=== PATIENT | male | born 1940 | race African-American/Black ===

== ENCOUNTER 2017-02-02 11:42 | Inpatient (IN) | payer OTHER ==
[2017-02-02 11:51] VITALS: BMI 34.4
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
[2017-02-02 13:29] LABS: MCH 38.8 pg (25.7-33.7); MCHC 32.7 g/dl (32.0-35.9); MEAN CELL VOLUME 118.9 fl (80-96); MEAN PLT VOLUME 9.6 fl (7.5-11.1); PLATELET COUNT 329 K/MM3 (134-434); RDW 13.9 % (11.9-15.9); WHITE BLOOD COUNT 11.5 K/mm3 (4.0-10.0)
[2017-02-02 13:46] LABS: INR 3.9 (0.82-1.09); PROTHROMBIN TIME (PATIENT) 44.1 SEC (9.98-11.88)
[2017-02-02 13:48] LABS: ACTIVATED PTT 53.4 SECONDS (26.9-34.4)
[2017-02-02 13:49] LABS: ALBUMIN 3.6 g/dl (3.4-5.0); ANION GAP 10 (8-16); CALCIUM 9.2 mg/dL (8.5-10.1); CO2 27 mmol/L (21-32); CREATININE 2.9 mg/dL (0.7-1.3); GLUCOSE,RANDOM 89 mg/dL (74-106); SGPT/ALT 32 U/L (12-78)
[2017-02-02 13:53] LABS: ALK PHOS 79 U/L (45-117); BILIRUBIN,TOTAL 1.1 mg/dL (0.2-1.0); TOT PROT 6.9 g/dl (6.4-8.2); TROPONIN I 0.12 ng/ml (0.00-0.05)
[2017-02-02 14:11] LABS: MAGNESIUM 2.1 mg/dL (1.8-2.4); SGOT/AST 72 U/L (15-37); TOTAL CELLS COUNTED 100
[2017-02-02 14:12] LABS: PLATELET ESTIMATE ADEQUATE
[2017-02-02 14:14] LABS: ANISOCYTOSIS 2+; MACROCYTOSIS 3+
[2017-02-02] MEDS ORDERED: ASPIRIN 325 MG TABLET PO ONE (14:26)
[2017-02-02] MEDS ORDERED: ASPIRIN 325 MG TABLET ONE (14:33)
[2017-02-02 15:07] LABS: URINE APPEARANCE SLCLOUDY; URINE BILIRUBIN NEGATIVE (NEGATIVE); URINE BLOOD 2+ (NEGATIVE); URINE COLOR YELLOW; URINE GLUCOSE (UA) NEGATIVE (NEGATIVE); URINE KETONE NEGATIVE (NEGATIVE); URINE NITRITE NEGATIVE (NEGATIVE)
[2017-02-02 15:11] LABS: URINE PROTEIN 1+ (NEGATIVE)
[2017-02-02 15:12] LABS: URINE HYALINE CAST 1 /lpf; URINE RBC <1 /hpf (0-3); URINE WBC 1 /hpf (3-5)
--- NOTE | 2017-02-02 16:21 | HP ---
Admitting History and Physical - Admission Chief Complaint: lethargy/baca History of Present Illness: The patient is a 76 year old male, with a significant past medical history of CHF, afib, HTN, HLD, CAD, multiple DVT, renal carcinoma s/p nephrectomy who was sent for admission with c/os of weakness and fatigue. The patient notes he has been losing weight and has c/os of weakness.. He notes having a persistent non- productive cough for about 2-3 days. He denies any recent fevers, chills, headache or dizziness. He denies any recent nausea, vomit, diarrhea or constipation. He denies any recent chest pain. He denies any recent dysuria, frequency, urgency or hematuria. 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 Cardiovascular: Yes: AFIB, CAD, Deep Vein Thrombosis, HTN, Hyperlipdemia, MD Renal/: Yes: Renal Inusuff (Stage 3), Cancer (right kidney) - Past Surgical History Past Surgical History: Yes: Nephrectomy (right kidney) - Smoking History Smoking history: Current every day smoker Have you smoked in the past 12 months: No Aproximately how many cigarettes per day: 3 If you are a former smoker, when did you quit?: 20 years ago - Alcohol/Substance Use Hx Alcohol Use: No History of Substance Use: reports: None - Social History Usual Living Arrangement: Yes: Alone ADL: Independent History of Recent Travel: No Home Medications - Allergies Allergies/Adverse Reactions: Allergies Allergy/AdvReac Type Severity Reaction Status Date / Time No Known Allergies Allergy Verified 02/02/17 11:50 - Home Medications Home Medications: Ambulatory Orders Allopurinol [Zyloprim -] 200 mg PO DAILY tablet 08/05/15 Amiodarone HCl [Cordarone -] 200 mg PO DAILY tablet 08/05/15 Amlodipine Besylate [Norvasc -] 5 mg PO DAILY #30 tablet 08/05/15 Cholecalciferol (Vitamin D3) [Vitamin D3 -] 2,000 unit PO DAILY tab 08/05/15 Hydroxyurea [Hydrea 500Mg Capsule -] 500 mg PO BID capsule 08/05/15 Metoprolol Succinate [Toprol XL -] 100 mg PO DAILY tab.sr.24h 08/05/15 Torsemide [Demadex -] 40 mg PO DAILY tablet 08/05/15 Valsartan [Diovan] 320 mg PO DAILY tablet 08/05/15 Warfarin Sodium [Coumadin] 6 mg PO DAILY #0 tablet 08/05/15 Allopurinol [Zyloprim -] 200 mg PO DAILY tablet 01/07/16 Amiodarone HCl [Cordarone -] 200 mg PO DAILY tablet 01/07/16 Amlodipine Besylate [Norvasc -] 5 mg PO DAILY tablet 01/07/16 Cholecalciferol (Vitamin D3) [Vitamin D3 -] 2,000 unit PO DAILY tab 01/07/16 Hydroxyurea [Hydrea 500Mg Capsule -] 500 mg PO BID capsule 01/07/16 Metoprolol Succinate [Toprol XL -] 100 mg PO DAILY tab.sr.24h 01/07/16 Simvastatin [Zocor -] 40 mg PO HS #30 tablet 01/07/16 Torsemide [Demadex -] 40 mg PO DAILY tablet 01/07/16 Valsartan [Diovan] 320 mg PO DAILY tablet 01/07/16 Warfarin Na [Coumadin -] 6 mg PO DAILY@1800 tablet 01/07/16 Family Disease History - Family Disease History Family History: Unremarkable Review of Systems - Review of Systems Constitutional: reports: Lethargy, Loss of Appetite. denies: Fever Eyes: denies: Blurred Vision HENT: denies: Difficult Swallowing, Throat Pain Neck: denies: Decreased ROM Cardiovascular: denies: Chest Pain Respiratory: reports: Exercise Intolerance, SOB on Exertion. denies: Hemoptysis , Wheezing Gastrointestinal: denies: Abdominal Pain Genitourinary: denies: Burning Breasts: reports: No Symptoms Reported Musculoskeletal: reports: No Symptoms Integumentary: reports: No Symptoms Neurological: reports: No Symptoms Physical Examination Vital Signs: Vital Signs Temperature 98.4 F 02/02/17 11:47 Pulse Rate 77 02/02/17 11:47 Respiratory Rate 19 02/02/17 11:47 Blood Pressure 137/67 02/02/17 11:47 O2 Sat by Pulse Oximetry (%) 96 02/02/17 11:47 Constitutional: Yes: No Distress Eyes: Yes: Conjunctiva Clear HENT: Yes: Atraumatic Neck: Yes: Supple Cardiovascular: Yes: S1, S2 Respiratory: Yes: Rhonchi (left base) Gastrointestinal: Yes: Normal Bowel Sounds, Soft ...Rectal Exam: Yes: Deferred Breast(s): Yes: WNL Musculoskeletal: Yes: WNL Edema: Yes Integumentary: Yes: WNL Neurological: Yes: Alert ...Motor Strength: WNL Psychiatric: Yes: WNL Labs: CBC, BMP 02/02/17 13:15 02/02/17 13:15 all reviewed Imaging - Results Chest X-ray: Report Reviewed, Image Reviewed Problem List - Problems (1) Renal cell carcinoma Code(s): C64.9 - MALIGNANT NEOPLASM OF UNSP KIDNEY, EXCEPT RENAL PELVIS (2) Acute on chronic combined systolic and diastolic congestive heart failure Code(s): I50.43 - ACUTE ON CHRONIC COMBINED SYSTOLIC AND DIASTOLIC HRT FAIL (3) Acute on chronic renal failure Code(s): N17.9 - ACUTE KIDNEY FAILURE, UNSPECIFIED; N18.9 - CHRONIC KIDNEY DISEASE, UNSPECIFIED (4) Acute pulmonary edema with congestive heart failure Code(s): I50.1 - LEFT VENTRICULAR FAILURE, UNSPECIFIED (5) Anemia Code(s): D64.9 - ANEMIA, UNSPECIFIED Qualifiers: Assessment/Plan PROGRESSIVE RENAL INSUFFICIENCY PAF/DILATED CARDIOMYOPATHY ELEVATED TROPONIN/ELEVATED BNP WEIGHT LOSS/FATIGUE LEFT BASE RHONCHI ANEMIA HOLD ARB ECHO/CYCLE TROPS/CARDIO EVAL MONITOR BUN/CR OBTAIN RENAL /BLADDER ULTRASOUND/RENAL EVAL CONTINUE ANTICOAGULATION CHEST CT R/O UNDERLYING LEFT BASE INFILTRATE PANCULTURE/MONITOR I/O R MELISSA CAMPOS
--- NOTE | 2017-02-02 16:21 | EKG ---
Test Reason : Blood Pressure : / mmHG Vent. Rate : 067 BPM Atrial Rate : 067 BPM P-R Int : 186 ms QRS Dur : 088 ms QT Int : 444 ms P-R-T Axes : 080 -32 035 degrees QTc Int : 469 ms NORMAL SINUS RHYTHM LEFT AXIS DEVIATION INFERIOR INFARCT , AGE UNDETERMINED ABNORMAL ECG WHEN COMPARED WITH ECG OF 03-JAN-2016 21:53, T WAVE INVERSION NO LONGER EVIDENT IN LATERAL LEADS QT HAS LENGTHENED Confirmed by INDER PAZ MD ([id number]) on 02/02/2017 4:21:27 PM Referred By: Confirmed By:INDER PAZ MD
[2017-02-02] MEDS ORDERED: ATORVASTATIN CA 20 MG TABLET (FP) PO SCH (16:30)
[2017-02-02] MEDS: WARFARIN NA 7.5 MG TABLET (FP) PO SCH ×2 (17:37→18:29)
[2017-02-02] MEDS: HYDROXYUREA 500 MG CAPSULE PO SCH (17:39)
[2017-02-02 19:11] LABS: URINE LEUK ESTERASE Negative (NEGATIVE)
[2017-02-02 19:44] LABS: TROPONIN I 0.08 ng/ml (0.00-0.05)
[2017-02-02] MEDS: ALBUTEROL SO4 0.083% IH SOL 2.5 MG/3 ML VIAL.NEB. NEB PRN (20:02)
[2017-02-02] MEDS ORDERED: LEVOFLOXACIN 500 MG IVPB 500 MG/100 ML BAG IVPB ONE (20:30)
[2017-02-02] MEDS: ATORVASTATIN CA 20 MG TABLET (FP) PO SCH (21:20)
[2017-02-02 21:46] LABS: TROPONIN I 0.08 ng/ml (0.00-0.05)
[2017-02-03] MEDS: HYDROXYUREA 500 MG CAPSULE PO SCH ×2 (04:03→17:29)
[2017-02-03 07:17] LABS: CPK 137 IU/L (39-308); TROPONIN I 0.08 ng/ml (0.00-0.05)
[2017-02-03] MEDS: METOPROLOL SUCCINATE 100 MG TAB.SR.24H (FP) PO SCH (09:01)
[2017-02-03] MEDS: ALLOPURINOL 100 MG TABLET (FP) PO SCH (09:01)
[2017-02-03] MEDS: amLODIPine BESYLATE 5 MG TABLET (FP) PO SCH (09:02)
--- NOTE | 2017-02-03 09:03 | CON.CARD ---
Consult Consult Specialty:: Cardiology Referred by:: Sridhar Rodriguez MD Reason for Consultation:: LV dysfunction - History of Present Illness Chief Complaint: Weakness, fatigue History of Present Illness: Patient is a 76 year old male with underlying history of ASHD post [place], angina pectoris, systolic and diastolic LV failure, PAF [id number] score of 4 on chronic anticoagulation therapy, HTN/HCVD, hypercholesterolemia, CKD, history of DVT, renal CA S/P nephrectomy and essential thrombocytosis. presents with c/o weakness , anorexia, inadvertent weight loss and fatigue. He notes having a persistent non-productive cough for about 2-3 days. He denies chest pain, dyspnea, near or true syncope, orthopnea, PND or LE edema, fevers or chills. Chest CT shows LLL PNA. 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 Cardio/Vascular: Yes: AFIB, CAD, Deep Vein Thrombosis, HTN, Hyperlipdemia, [place] Renal/: Yes: Renal Inusuff (Stage 3), Cancer (right kidney) - Past Surgical History Past Surgical History: Yes: Nephrectomy (right kidney) - Alcohol/Substance Use Hx Alcohol Use: No History of Substance Use: reports: None - Smoking History Smoking history: Current every day smoker Have you smoked in the past 12 months: No Aproximately how many cigarettes per day: 3 If you are a former smoker, when did you quit?: 20 years ago - Social History ADL: Independent History of Recent Travel: No Home Medications - Allergies Allergies/Adverse Reactions: Allergies Allergy/AdvReac Type Severity Reaction Status Date / Time No Known Allergies Allergy Verified 02/02/17 11:50 - Home Medications Home Medications: Ambulatory Orders Allopurinol [Zyloprim -] 200 mg PO DAILY tablet 08/05/15 Amiodarone HCl [Cordarone -] 200 mg PO DAILY tablet 08/05/15 Amlodipine Besylate [Norvasc -] 5 mg PO DAILY #30 tablet 08/05/15 Cholecalciferol (Vitamin D3) [Vitamin D3 -] 2,000 unit PO DAILY tab 08/05/15 Hydroxyurea [Hydrea 500Mg Capsule -] 500 mg PO BID capsule 08/05/15 Metoprolol Succinate [Toprol XL -] 100 mg PO DAILY tab.sr.24h 08/05/15 Torsemide [Demadex -] 40 mg PO DAILY tablet 08/05/15 Valsartan [Diovan] 320 mg PO DAILY tablet 08/05/15 Warfarin Sodium [Coumadin] 6 mg PO DAILY #0 tablet 08/05/15 Allopurinol [Zyloprim -] 200 mg PO DAILY tablet 01/07/16 Amiodarone HCl [Cordarone -] 200 mg PO DAILY tablet 01/07/16 Amlodipine Besylate [Norvasc -] 5 mg PO DAILY tablet 01/07/16 Cholecalciferol (Vitamin D3) [Vitamin D3 -] 2,000 unit PO DAILY tab 01/07/16 Hydroxyurea [Hydrea 500Mg Capsule -] 500 mg PO BID capsule 01/07/16 Metoprolol Succinate [Toprol XL -] 100 mg PO DAILY tab.sr.24h 01/07/16 Simvastatin [Zocor -] 40 mg PO HS #30 tablet 01/07/16 Torsemide [Demadex -] 40 mg PO DAILY tablet 01/07/16 Valsartan [Diovan] 320 mg PO DAILY tablet 01/07/16 Warfarin Na [Coumadin -] 6 mg PO DAILY@1800 tablet 01/07/16 Review of Systems - Review of Systems Constitutional: reports: Weakness Respiratory: reports: Cough Vital Signs: Vital Signs Temperature 98.7 F 02/03/17 08:13 Pulse Rate 78 02/03/17 08:13 Respiratory Rate 16 02/03/17 08:13 Blood Pressure 134/62 02/03/17 08:13 O2 Sat by Pulse Oximetry (%) 92 L 02/03/17 08:16 Constitutional: Yes: No Distress, Calm Neck: Yes: Supple Respiratory: Yes: Regular, Diminished, On Nasal O2, Rales (Left base), Other Gastrointestinal: Yes: Normal Bowel Sounds, Soft Cardiovascular: Yes: Regular Rate and Rhythm JVD: No Carotid Bruit: No Heart Sounds: Yes: S1, S2 Murmur: Yes: Systolic Murmur, Grade 1 Edema: No - Other Data Labs, Other Data: CBC, BMP 02/02/17 13:15 02/02/17 13:15 INR, PTT INR 3.90 (0.82-1.09) H D 02/02/17 13:15 Troponin, BNP 02/02/17 02/02/17 02/02/17 13:15 18:30 20:30 Troponin I 0.12 H D 0.08 H D 0.08 H B-Natriuretic Peptide 87544.17 H 02/03/17 06:25 Troponin I 0.08 H B-Natriuretic Peptide Troponin, BNP 02/02/17 02/02/17 02/02/17 13:15 18:30 20:30 Troponin I 0.12 H D 0.08 H D 0.08 H B-Natriuretic Peptide 38231.17 H 02/03/17 06:25 Troponin I 0.08 H B-Natriuretic Peptide NSR LAD Echo: Report Reviewed Ejection Fraction %: LVEF > or = 40 % Imaging - Results Cat Scan: Report Reviewed (LLL PNA) Problem List - Problems (1) Elevated INR Code(s): R79.1 - ABNORMAL COAGULATION PROFILE (2) Anemia Code(s): D64.9 - ANEMIA, UNSPECIFIED Qualifiers: Anemia type: due to chronic kidney disease Chronic kidney disease stage: stage 3 (moderate) Qualified Code(s): N18.3 - Chronic kidney disease, stage 3 (moderate); D63.1 - Anemia in chronic kidney disease; D63.1 - Anemia in chronic kidney disease (3) Aortic regurgitation Code(s): I35.1 - NONRHEUMATIC AORTIC (VALVE) INSUFFICIENCY Qualifiers: Cardiac valve disease etiology: nonrheumatic Qualified Code(s): I35.1 - Nonrheumatic aortic (valve) insufficiency (4) Atrial fibrillation Code(s): I48.91 - UNSPECIFIED ATRIAL FIBRILLATION Qualifiers: Atrial fibrillation type: paroxysmal Qualified Code(s): I48.0 - Paroxysmal atrial fibrillation (5) Chronic kidney disease Code(s): N18.9 - CHRONIC KIDNEY DISEASE, UNSPECIFIED Qualifiers: Chronic kidney disease stage: stage 3 (moderate) Qualified Code(s): N18.3 - Chronic kidney disease, stage 3 (moderate) (6) Community acquired pneumonia Code(s): J18.9 - PNEUMONIA, UNSPECIFIED ORGANISM Qualifiers: Laterality: left Lung location: lower lobe of lung Qualified Code(s): J18.1 - Lobar pneumonia, unspecified organism (7) Diastolic dysfunction without heart failure Code(s): I51.9 - HEART DISEASE, UNSPECIFIED (8) Obstructive sleep apnea Code(s): G47.33 - OBSTRUCTIVE SLEEP APNEA (ADULT) (PEDIATRIC) (9) Pulmonary HTN Code(s): I27.2 - OTHER SECONDARY PULMONARY HYPERTENSION * DO NOT USE * (10) Status post myocardial infarction of inferior wall Code(s): I25.2 - OLD MYOCARDIAL INFARCTION (11) Coronary artery disease Code(s): I25.10 - ATHSCL HEART DISEASE OF [place] CORONARY ARTERY W/O ANG PCTRS Qualifiers: Coronary Disease-Associated Artery/Lesion type: [place] artery [place] vs. transplanted heart: [place] heart Associated angina: without angina Qualified Code(s): I25.10 - Atherosclerotic heart disease of [place] coronary artery without angina pectoris (12) Hyperlipidemia Code(s): E78.5 - HYPERLIPIDEMIA, UNSPECIFIED Qualifiers: Hyperlipidemia type: pure hypercholesterolemia Qualified Code(s): E78.00 - Pure hypercholesterolemia, unspecified; E78.0 - Pure hypercholesterolemia (13) Hypertensive cardiovascular-renal disease Code(s): I13.10 - HYP HRT & CHR KDNY DIS W/O HRT FAIL, W STG 1-4/UNSP CHR KDNY Qualifiers: Hypertensive chronic kidney disease stage: stage 1-4 or unspecified chronic kidney disease Heart failure presence: with heart failure Qualified Code(s) : I13.0 - Hypertensive heart and chronic kidney disease with heart failure and stage 1 through stage 4 chronic kidney disease, or unspecified chronic kidney disease (14) Demand ischemia Code(s): I24.8 - OTHER FORMS OF ACUTE ISCHEMIC HEART DISEASE (15) Hyperkalemia Code(s): E87.5 - HYPERKALEMIA Assessment/Plan 01/05/2016 Mild cLVH, mild decreased LV fxn, mod LAE, mild-mod TR, mod AR, mild MR, NC 1. LLL PNA 2. Chronic LV diastolic dysfunction 3. PAF currently in sinus rhythm [id number] 4 with supratherapeutic INR 4. CAD post [place], demand ischemia 5. HTN/HCVD 6. Hypercholesterolemia 7. COPD 8. Progressive CKD with hyperkalemia 9. Anemia 10. History of essential thrombocytosis PLAN: 1. Abx course per C&S, judicious hydration, BD and O2 as needed 2. Continue Toprol XL 100 qd, Norvasc 5 qd, and Lipitor 20 qd. Diovan and Demadex held pending renal and hyperkalemia recovery 3. Dose Coumadin per INR target 2-3 4. F/u echocardiogram, renal U/S, renal fxn and electrolytes 5. Thank you for consultative opportunity
--- NOTE | 2017-02-03 10:29 | CON.GU ---
Consult Consult Specialty:: Referred by:: Michael Reason for Consultation:: h/o renal cancer, now with weight loss - History of Present Illness Chief Complaint: weight loss weakness History of Present Illness: 76 year old male with distant history of radical nephrectomy who presents with weakness and weight loss. Records of this surgery and the pathology reports are not immediately available. He denies any urinary complaints. 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 Cardio/Vascular: Yes: AFIB, CAD, Deep Vein Thrombosis, HTN, Hyperlipdemia, [place] Renal/: Yes: Renal Inusuff (Stage 3), Cancer (right kidney) - Past Surgical History Past Surgical History: Yes: Nephrectomy (right kidney) - Alcohol/Substance Use Hx Alcohol Use: No History of Substance Use: reports: None - Smoking History Smoking history: Current every day smoker Have you smoked in the past 12 months: No Aproximately how many cigarettes per day: 3 If you are a former smoker, when did you quit?: 20 years ago - Social History ADL: Independent History of Recent Travel: No Home Medications - Allergies Allergies/Adverse Reactions: Allergies Allergy/AdvReac Type Severity Reaction Status Date / Time No Known Allergies Allergy Verified 02/02/17 11:50 - Home Medications Home Medications: Ambulatory Orders Allopurinol [Zyloprim -] 100 mg PO DAILY 02/03/17 Amlodipine Besylate 5 mg PO DAILY 02/03/17 Cholecalciferol (Vitamin D3) [Vitamin D3] 2,000 unit PO DAILY 02/03/17 Hydroxyurea [Hydrea] 500 mg PO BID 02/03/17 Metoprolol Succinate [Toprol Xl] 100 mg PO DAILY 02/03/17 Simvastatin 40 mg PO HS 02/03/17 Torsemide 20 mg PO DAILY 02/03/17 Warfarin Sodium 6 mg PO DAILY 02/03/17 Review of Systems - Review of Systems Constitutional: reports: Loss of Appetite, Weakness Genitourinary: reports: No Symptoms Physical Exam- Vital Signs: Vital Signs Temperature 98.7 F 02/03/17 08:13 Pulse Rate 78 02/03/17 08:13 Respiratory Rate 16 02/03/17 08:13 Blood Pressure 134/62 02/03/17 08:13 O2 Sat by Pulse Oximetry (%) 92 L 02/03/17 08:16 Renal/: No: Bladder Distention, CVA Tenderness - Left, CVA Tenderness - Right , Najera Present Labs: CBC, BMP 02/02/17 13:15 02/02/17 13:15 Problem List - Problems (1) Renal cell carcinoma Assessment/Plan: non contrast CT ordered to evaluate for any possible recurrence, or contralateral renal disease Code(s): C64.9 - MALIGNANT NEOPLASM OF UNSP KIDNEY, EXCEPT RENAL PELVIS
[2017-02-03] MEDS: ALBUTEROL SO4 0.083% IH SOL 2.5 MG/3 ML VIAL.NEB. NEB PRN (10:45)
--- NOTE | 2017-02-03 11:05 | PN ---
Teaching Attending Note Name of Resident: Davide Mckeon ATTENDING PHYSICIAN STATEMENT I saw and evaluated the patient. I reviewed the resident's note and discussed the case with the resident. I agree with the resident's findings and plan as documented. PULMONARY ALERT,FEELING BETTER,-CP,-SOB,+COUGH SUBJECTIVE:Problem List - Problems (1) Renal cell carcinoma Code(s): C64.9 - MALIGNANT NEOPLASM OF UNSP KIDNEY, EXCEPT RENAL PELVIS (2) Acute on chronic combined systolic and diastolic congestive heart failure Code(s): I50.43 - ACUTE ON CHRONIC COMBINED SYSTOLIC AND DIASTOLIC HRT FAIL (3) Acute on chronic renal failure Code(s): N17.9 - ACUTE KIDNEY FAILURE, UNSPECIFIED; N18.9 - CHRONIC KIDNEY DISEASE, UNSPECIFIED (4) Acute pulmonary edema with congestive heart failure Code(s): I50.1 - LEFT VENTRICULAR FAILURE, UNSPECIFIED (5) Anemia Code(s): D64.9 - ANEMIA, UNSPECIFIED Qualifiers: Assessment/Plan PROGRESSIVE RENAL INSUFFICIENCY PAF/DILATED CARDIOMYOPATHY PNEUMONIA ELEVATED TROPONIN/ELEVATED BNP WEIGHT LOSS/FATIGUE ANEMIA ECHO MONITOR BUN/CR RENAL EVAL CONTINUE ANTICOAGULATION MONITOR I/Os F/U CHEST X-RAYS INHALED BRONCHODILATORS ANTIBIOTICS DR TAYLOR Problem List - Problems (1) Pneumonia Code(s): J18.9 - PNEUMONIA, UNSPECIFIED ORGANISM
[2017-02-03 12:04] LABS: ANION GAP 10 (8-16); CALCIUM 8.1 mg/dL (8.5-10.1); CO2 24 mmol/L (21-32); CREATININE 2.5 mg/dL (0.7-1.3); GLUCOSE,RANDOM 95 mg/dL (74-106)
--- NOTE | 2017-02-03 13:26 | CON.PULM ---
Consult Consult Specialty:: pulmonary Reason for Consultation:: We were called to evaluate the patient for multilobar pneumonia - History of Present Illness History of Present Illness: The patient is a 76 yo m w/ PMH CHF, afib, HTN, HLD, CAD and multiple DVTs who was sent to the hospital for admission by Dr. Rodriguez for progressive weakness and fatigue in addition to a 3 day history of nonproductive cough. The patient states that these symptoms were associated with fevers, chills and malaise for the past 3 days which prompted him to call his PCP. A chest Xray from the ED showed cardiomegaly. A CT of the chest showed evidence of pulmonary hypertension as well as a multilobar pneumonia. Patient was admitted for further management of his condition. Today, patient states his breathing is better. No new complaints. 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 Cardio/Vascular: Yes: AFIB, CAD, Deep Vein Thrombosis, HTN, Hyperlipdemia, [place] Renal/: Yes: Renal Inusuff (Stage 3), Cancer (right kidney) - Past Surgical History Past Surgical History: Yes: Nephrectomy (right kidney) - Alcohol/Substance Use Hx Alcohol Use: No History of Substance Use: reports: None - Smoking History Smoking history: Current every day smoker Have you smoked in the past 12 months: No Aproximately how many cigarettes per day: 3 If you are a former smoker, when did you quit?: 20 years ago - Social History ADL: Independent History of Recent Travel: No Home Medications - Allergies Allergies/Adverse Reactions: Allergies Allergy/AdvReac Type Severity Reaction Status Date / Time No Known Allergies Allergy Verified 02/02/17 11:50 - Home Medications Home Medications: Ambulatory Orders Allopurinol [Zyloprim -] 100 mg PO DAILY 02/03/17 Amiodarone HCl [Cordarone -] 200 mg PO DAILY 02/03/17 Amlodipine Besylate 5 mg PO DAILY 02/03/17 Cholecalciferol (Vitamin D3) [Vitamin D3] 2,000 unit PO DAILY 02/03/17 Diovan 160 mg PO DAILY 02/03/17 Hydroxyurea [Hydrea] 500 mg PO BID 02/03/17 Metoprolol Succinate [Toprol Xl] 100 mg PO DAILY 02/03/17 Simvastatin 40 mg PO HS 02/03/17 Torsemide 40 mg PO DAILY 02/03/17 Warfarin Sodium 7 mg PO DAILY 02/03/17 Review of Systems - Review of Systems Constitutional: reports: Chills, Fever, Malaise, Weakness Cardiovascular: reports: Shortness of Breath. denies: Chest Pain, Edema, Palpitations Respiratory: reports: Cough, SOB, SOB on Exertion. denies: Hemoptysis, Orthopnea Physical Exam Vital Sings: Vital Signs Temperature 98.7 F 02/03/17 08:13 Pulse Rate 78 02/03/17 08:13 Respiratory Rate 16 02/03/17 08:13 Blood Pressure 134/62 02/03/17 08:13 O2 Sat by Pulse Oximetry (%) 92 L 02/03/17 08:16 Constitutional: Yes: Well Nourished, No Distress, Calm HENT: Yes: Atraumatic, Normocephalic Neck: Yes: Supple, Trachea Midline Cardiovascular: Yes: Regular Rate and Rhythm, S1, S2. No: Bruit, JVD, Gallop, Murmur, Rub, S3, S4 Respiratory: Yes: Regular, Rales, Rhonchi ...Breath Sounds: CINDI Rales, LLL Rhonchi, RUL Rales, RML Rales, RLL Rhonchi Neurological: Yes: Alert, Oriented Labs: CBC, BMP 02/02/17 13:15 02/03/17 06:25 Assessment/Plan The patient is a 76 yo m w/ PMH CHF, Afib, HTN, CAD multiple DVT who is admitted for multilobar pneumonia. Patient is improving on current treatment #SOB, malaise, fever 2/2 multilobar pneumonia -ABX as per ID -ceftriaxone 2gm daily -Vibramycin 100mg BID -Albuterol Q4h PRN -supplemental O2 as needed -advise echo -patient will need f/u CXR to monitor resolution -Will need f/u chest CT in 4-6 weeks to document resolution of PNA #Progressive renal insufficiency 2/2 renal Ca and s/p nephrectomy -monitor bun/ Cr -nephrology eval -monitor I/O #PMH multiple DVTs -c/w anticoagulation
[2017-02-03] MEDS ORDERED: cefTRIAXone 2 GM/100 ML BAG (PRE-DOCKED) IVPB SCH (14:00)
--- NOTE | 2017-02-03 14:01 | PN ---
Progress Note (short form) - Note Progress Note: ID consult dictated 76 year old man admitted with nonproductive cough and fever- unclear duration he is quite forgetful and a poor historian prior history of nephrectomy and CKD on hydoxyurea for thrombocytosis chest ct with LLL infiltrate, patchy RLL infiltrate suggest treat for CAP rocephin/doxy obtain blood cultures and legionella urinry antigen d/w Dr Bradford- head ct macrocytic anemia ckd history to renal cell ca Problem List - Problems (1) Pneumonia Code(s): J18.9 - PNEUMONIA, UNSPECIFIED ORGANISM (2) Acute on chronic renal failure Code(s): N17.9 - ACUTE KIDNEY FAILURE, UNSPECIFIED; N18.9 - CHRONIC KIDNEY DISEASE, UNSPECIFIED (3) Renal cell carcinoma Code(s): C64.9 - MALIGNANT NEOPLASM OF UNSP KIDNEY, EXCEPT RENAL PELVIS
[2017-02-03] MEDS ORDERED: PT OWN MED DRAWER 7, Y5N ONE (15:44)
--- NOTE | 2017-02-03 17:07 | CONS ---
DATE OF CONSULTATION: DATE OF DICTATION: 02/03/2017 INFECTIOUS DISEASE CONSULTATION REQUESTING PHYSICIAN: Sridhar Rodriguez M.D. CONSULTING PHYSICIAN: Elidia Abdullahi M.D. HISTORY OF PRESENT ILLNESS: This is a 76-year-old man. He is a very poor historian. He has a past medical history of heart failure, atrial fibrillation, DVT in the past. He is on Coumadin, renal cell carcinoma status post nephrectomy with CKD, admitted with weakness, fatigue. He has had a nonproductive cough for the last several days, as well as chills. He is really unable to say how long these things have been going on. He lives alone. He denies any GI symptoms. He does report weight loss which he quantitates by saying "My clothes have become loose". He came to the emergency room yesterday on the with these complaints. Overnight he had fever to 101.3. Since then he has been afebrile. He had a chest CT done that shows evidence of left lower lobe pneumonia with some patchy infiltrates in the lingula as well as right lower lobe. I am asked to see him for further evaluation. PAST MEDICAL HISTORY: Notable for history of peripheral neuropathy, atrial fibrillation, coronary artery disease, deep vein thrombosis, hypertension, hyperlipidemia, ND, , and renal cell carcinoma. SURGICAL HISTORY: Notable for right-sided nephrectomy. SOCIAL HISTORY: Notable for, he lives alone. 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 He denies any history of TB. He lives alone. There is no history of any travel. He has no pets. He has no sick contacts. He has no known drug allergies. MEDICATION LIST: Includes allopurinol, amiodarone, Norvasc, vitamin D, hydroxyurea, Toprol XL, Demadex, valsartan, Coumadin. FAMILY HISTORY: Not available. REVIEW OF SYSTEMS: He denies any GI symptoms. He notes the weight loss, and he has nonproductive cough. He has had chills for the last several days. PHYSICAL EXAMINATION: General: He is resting comfortably in no distress. Vital signs: He is afebrile. Temperature 98.8, pulse 66, blood pressure 128/75, respiratory rate 16. He is saturating 92%. HEENT: Normocephalic. Eyes are anicteric. He has poor dentition. He is missing several upper teeth. He recently went to get a bridge, but this was not done, apparently. Neck: Supple. He has no meningeal signs. Lungs: He has crackles at his left lung base. Heart: Regular rate and rhythm. Abdomen: Soft, nontender. Extremities: Without edema. LABORATORY: White count is 11.5, hemoglobin 10.8, MCV of 118 with a platelets of 329, INR is 3.9, BUN and creatinine are 49 and 2.5, sodium of 141, LFTs are notable AST of 72, total bilirubin of 1.1, and urinalysis is negative for leukocyte esterase, 1 white cell. Urine culture is negative. Blood cultures were not ordered. IMPRESSION: In summary, this is a 76-year-old man admitted with cough and fever. He is quite forgetful. He has a history of renal cell cancer. I would suggest we treat him for community acquired pneumonia. Rocephin and doxycycline. Obtain blood cultures and legionella urinary antigen. I discussed him with Dr. Rodriguez and would suggest we get a head CT as well. He has macrocytic anemia that will require workup as well. He has chronic kidney disease with history of renal cell cancer. Further recommendations to follow. Shira [id number]
--- NOTE | 2017-02-03 17:15 | PN ---
Progress Note (short form) - Note Progress Note: states he feels much improved since yesterday. denies CP, SOB, fever, chills, N/ V/C/D, BRBPR, melena, hematuria or cough. states he is compliant with medications at home Current Medications Generic Name Dose Route Start Last Admin Trade Name Freq PRN Reason Stop Dose Admin Albuterol Sulfate 1 amp 02/02/17 19:20 02/03/17 10:45 Ventolin 0.083% Nebulizer Soln - NEB 1 amp Q4H PRN Administration SHORT OF BREATH/WHEEZING Allopurinol 100 mg 02/03/17 10:00 02/03/17 09:01 Zyloprim - PO 100 mg DAILY COMPA Administration Amlodipine Besylate 5 mg 02/03/17 10:00 02/03/17 09:02 Norvasc - PO 5 mg DAILY COMPA Administration Atorvastatin Calcium 20 mg 02/02/17 22:00 02/02/17 21:20 Lipitor - PO 20 mg HS COMPA Administration Doxycycline Hyclate 100 mg 02/03/17 18:00 Vibramycin - PO BID@1000,1800 CMOPA Hydroxyurea 500 mg 02/02/17 16:30 02/03/17 04:03 Hydrea - PO 500 mg Q12H COMPA Administration Ceftriaxone Sodium 2 gm/ 100 mls @ 200 mls/hr 02/03/17 15:15 Dextrose IVPB DAILY [facility] Metoprolol Succinate 100 mg 02/03/17 10:00 02/03/17 09:01 Toprol Xl - PO 100 mg DAILY COMPA Administration Warfarin Sodium 7.5 mg 02/02/17 16:30 02/02/17 18:29 Coumadin - PO Not Given DAILY@1800 COMPA Last Vital Signs Temp Pulse Resp BP Pulse Ox 98.8 F 66 16 128/75 92 L 02/03/17 14:00 02/03/17 14:00 02/03/17 08:13 02/03/17 14:00 02/03/17 08:16 General NAD CV S1 S2 RRR no murmur/rubs/gallops Lungs coarse rales, decreased sounds L base no wheezing Abdomen soft NT/ND Extremities no pedal edema CBCD WBC 11.5 K/mm3 (4.0-10.0) H D 02/02/17 13:15 RBC 2.78 M/mm3 (4.00-5.60) L 02/02/17 13:15 Hgb 10.8 GM/dL (11.7-16.9) L 02/02/17 13:15 Hct 33.0 % (35.4-49) L 02/02/17 13:15 MCV 118.9 fl (80-96) H 02/02/17 13:15 MCHC 32.7 g/dl (32.0-35.9) 02/02/17 13:15 RDW 13.9 % (11.9-15.9) 02/02/17 13:15 Plt Count 329 K/MM3 (134-434) 02/02/17 13:15 MPV 9.6 fl (7.5-11.1) 02/02/17 13:15 CMP Sodium 141 mmol/L (136-145) 02/03/17 06:25 Potassium 4.0 mmol/L (3.5-5.1) D 02/03/17 06:25 Chloride 107 mmol/L (98-107) 02/03/17 06:25 Carbon Dioxide 24 mmol/L (21-32) 02/03/17 06:25 Anion Gap 10 (8-16) 02/03/17 06:25 BUN 49 mg/dL (7-18) H 02/03/17 06:25 Creatinine 2.5 mg/dL (0.7-1.3) H 02/03/17 06:25 Creat Clearance w eGFR 21.21 (>60) 02/02/17 13:15 Calcium 8.1 mg/dL (8.5-10.1) L 02/03/17 06:25 Total Bilirubin 1.1 mg/dL (0.2-1.0) H D 02/02/17 13:15 AST 72 U/L (15-37) H D 02/02/17 13:15 ALT 32 U/L (12-78) D 02/02/17 13:15 Alkaline Phosphatase 79 U/L (45-117) 02/02/17 13:15 Total Protein 6.9 g/dl (6.4-8.2) 02/02/17 13:15 Albumin 3.6 g/dl (3.4-5.0) 02/02/17 13:15 A/P 76yo M with PMH RCC s/p nephrectomy, Chronic LV diastolic dysfunction, PAF on coumadin, CAD, HTN, COPD, CKD, anemia and essential thrombocytosis presented to the ER with generalized weakness and cough 1. Multilobar PNA L>R- Tm 101.3. clinically improved. Started on Levaquin and switched to DOxy and Ceftriaxone today by ID. CT scan done and reviewed. will need repeat imaging in 4 weeks. f/u Cx. ID and pulmonary on board 2. ACute on CKD- likely due to dehydration vs medication induced. improved. hold diovan and torsemide. CT abdomen and pelvis to evaluate for mass as hx of RCC awaiting read. avoid nephrotoxic agents. nephrology consulted 3. Hyerkalemia- likely from CKD. resolved 4. Tropinemia- likely demand ischemia. flat trend. no workup at this time. monitor 5. Macrocytic anemia- no signs of bleeding. check vitamin B12 and folate . no indication for txn. monitor 6. RCC s/p nephrectomy- on hydroxyurea 7. PAF on coumadin- currently in sinus rythym. will hold amio at this time and monitor. consider re-starting if goes into PAF. 8. supratherapeutic INR- hold coumadin. last dose monday (02/01). monitor INR. no signs of bleeding 9. HTN- controlled. cont metoprolol and norvasc 10. COPD- stable 11. DVT ppx- supratherapeutic INR. 12. Requested to take over care by Dr Bradford. Visit type - Emergency Visit Emergency Visit: Yes ED Registration Date: 02/02/17 Care time: The patient presented to the Emergency Department on the above date and was hospitalized for further evaluation of their emergent condition. - New Patient This patient is new to me today: Yes Date on this admission: 02/03/17 - Critical Care Critical Care patient: No - Discharge Referral Referred to [facility] Med [facility] No
[2017-02-03] MEDS: CEFTRIAXONE 2 GM in DEXTROSE 5%-WATER - 100 ML IVPB SCH (17:28)
[2017-02-03] MEDS: DOXYCYCLINE HYCLATE 100 MG CAPSULE PO SCH (17:44)
--- NOTE | 2017-02-03 18:07 | CONSULT ---
Consult Consult Specialty:: Nephrology Reason for Consultation:: CKD - History of Present Illness Chief Complaint: sent in for weakness and fatigue History of Present Illness: Pt is a 76 year old male with pmhx of CHF, a-fib, HTN, chol, CAD, CKD and renal cell cancer. He was sent in for admission for fatigue and weakness. He complains of weight loss and has lost about 12 pounds. He denies dysuria or hematuria. He has had a cough for a few days. He was found to have elevated creatinine and I was called to evaluate him. He denies diarrhea or vomiting. 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 Cardio/Vascular: Yes: AFIB, CAD, Deep Vein Thrombosis, HTN, Hyperlipdemia, [place] Renal/: Yes: Renal Inusuff (Stage 3), Cancer (right kidney) - Past Surgical History Past Surgical History: Yes: Nephrectomy (right kidney) - Alcohol/Substance Use Hx Alcohol Use: No History of Substance Use: reports: None - Smoking History Smoking history: Current every day smoker Have you smoked in the past 12 months: No Aproximately how many cigarettes per day: 3 If you are a former smoker, when did you quit?: 20 years ago - Social History ADL: Independent History of Recent Travel: No Home Medications - Allergies Allergies/Adverse Reactions: Allergies Allergy/AdvReac Type Severity Reaction Status Date / Time No Known Allergies Allergy Verified 02/02/17 11:50 - Home Medications Home Medications: Ambulatory Orders Allopurinol [Zyloprim -] 100 mg PO DAILY 02/03/17 Amiodarone HCl [Cordarone -] 200 mg PO DAILY 02/03/17 Amlodipine Besylate 5 mg PO DAILY 02/03/17 Cholecalciferol (Vitamin D3) [Vitamin D3] 2,000 unit PO DAILY 02/03/17 Diovan 160 mg PO DAILY 02/03/17 Hydroxyurea [Hydrea] 500 mg PO BID 02/03/17 Metoprolol Succinate [Toprol Xl] 100 mg PO DAILY 02/03/17 Simvastatin 40 mg PO HS 02/03/17 Torsemide 40 mg PO DAILY 02/03/17 Warfarin Sodium 7 mg PO DAILY 02/03/17 Family Disease History - Family Disease History Family History: Denies Review of Systems - Review of Systems Constitutional: reports: Malaise. denies: Chills, Fever Eyes: reports: No Symptoms HENT: reports: No Symptoms Neck: reports: No Symptoms Cardiovascular: reports: No Symptoms Respiratory: reports: No Symptoms Gastrointestinal: reports: No Symptoms Genitourinary: reports: No Symptoms Musculoskeletal: reports: No Symptoms Integumentary: reports: No Symptoms Neurological: reports: No Symptoms Endocrine: reports: No Symptoms Hematology/Lymphatic: reports: No Symptoms Physical Exam Vital Signs: Vital Signs Temperature 98.8 F 02/03/17 14:00 Pulse Rate 66 02/03/17 14:00 Respiratory Rate 16 02/03/17 08:13 Blood Pressure 128/75 02/03/17 14:00 O2 Sat by Pulse Oximetry (%) 92 L 02/03/17 08:16 Constitutional: Yes: Calm Eyes: Yes: Conjunctiva Clear HENT: Yes: Atraumatic Neck: Yes: Supple Cardiovascular: Yes: S1, S2 Respiratory: Yes: On Nasal O2 Gastrointestinal: Yes: Normal Bowel Sounds, Soft Renal/: Yes: WNL Musculoskeletal: Yes: WNL Edema: No Neurological: Yes: Oriented Psychiatric: Yes: Oriented Labs: CBC, BMP 02/02/17 13:15 02/03/17 06:25 Laboratory Tests 01/07/16 02/02/17 02/02/17 06:00 13:15 13:15 WBC 11.5 H D Hgb 10.8 L BUN Creatinine 2.8 H 2.9 H 02/03/17 06:25 WBC Hgb BUN 49 H Creatinine 2.5 H Imaging - Results Cat Scan: Report Reviewed Problem List - Problems (1) CKD (chronic kidney disease) Code(s): N18.9 - CHRONIC KIDNEY DISEASE, UNSPECIFIED (2) Renal cell carcinoma Code(s): C64.9 - MALIGNANT NEOPLASM OF UNSP KIDNEY, EXCEPT RENAL PELVIS Assessment/Plan Current Medications Generic Name Dose Route Start Last Admin Trade Name Freq PRN Reason Stop Dose Admin Albuterol Sulfate 1 amp 02/02/17 19:20 02/03/17 10:45 Ventolin 0.083% Nebulizer Soln - NEB 1 amp Q4H PRN Administration SHORT OF BREATH/WHEEZING Allopurinol 100 mg 02/03/17 10:00 02/03/17 09:01 Zyloprim - PO 100 mg DAILY COMPA Administration Amlodipine Besylate 5 mg 02/03/17 10:00 02/03/17 09:02 Norvasc - PO 5 mg DAILY COMPA Administration Atorvastatin Calcium 20 mg 02/02/17 22:00 02/02/17 21:20 Lipitor - PO 20 mg HS OCMPA Administration Doxycycline Hyclate 100 mg 02/03/17 18:00 02/03/17 17:44 Vibramycin - PO 100 mg BID@1000,1800 COMPA Administration Hydroxyurea 500 mg 02/02/17 16:30 02/03/17 17:29 Hydrea - PO 500 mg Q12H COMPA Administration Ceftriaxone Sodium 2 gm/ 100 mls @ 200 mls/hr 02/03/17 15:15 02/03/17 17:28 Dextrose IVPB 200 mls/hr DAILY COMPA Administration Metoprolol Succinate 100 mg 02/03/17 10:00 02/03/17 09:01 Toprol Xl - PO 100 mg DAILY COMPA Administration Impression 1. CKD 2. hx renal cell cancer 3. weight loss 4. hyperlipidemia 5. HTN 6. complex left renal lesion 7. PNA Plan - renal function is improved from yesterday - reviewed ct scan - urology input appreciated - renal ultrasound pending - follow urine studies - cont current meds - will follow Dr Snow
[2017-02-03 18:48] LABS: INR 3.19 (0.82-1.09)
[2017-02-03] MEDS: ATORVASTATIN CA 20 MG TABLET (FP) PO SCH (21:34)
[2017-02-04] MEDS: HYDROXYUREA 500 MG CAPSULE PO SCH ×2 (05:37→16:50)
[2017-02-04 07:27] LABS: ANION GAP 9 (8-16); CALCIUM 8.5 mg/dL (8.5-10.1); CO2 26 mmol/L (21-32); CREATININE 2.3 mg/dL (0.7-1.3); GLUCOSE,RANDOM 94 mg/dL (74-106)
[2017-02-04 07:30] LABS: MCHC 34.4 g/dl (32.0-35.9); MEAN CELL VOLUME 117.1 fl (80-96); PLATELET COUNT 283 K/MM3 (134-434); RDW 13.3 % (11.9-15.9)
[2017-02-04 07:31] LABS: INR 2.5 (0.82-1.09); PROTHROMBIN TIME (PATIENT) 28.2 SEC (9.98-11.88)
--- NOTE | 2017-02-04 07:39 | PN ---
Progress Note (short form) - Note Progress Note: Chief Complaint: Events noted, notes reviewed, denies any chest pain but reports persistent dyspnea, denies any orthopnea or PND History of Present Illness: Seen and examined on telemetry. Events noted, notes reviewed, denies any chest pain but reports persistent dyspnea, denies any orthopnea or PND Complaining of being forgetful, disoriented to time and place this AM Chest x-ray report noted Echocardiography dated 01/05/2016 revealed Mild cLVH, mildly decreased LV function, mod LAE, mild-moderate TR, moderate AR and mild MR Medications: Current Medications Albuterol Sulfate (Ventolin 0.083% Nebulizer Soln -) 1 amp NEB Q4H PRN PRN Reason: SHORT OF BREATH/WHEEZING Last Admin: 02/03/17 10:45 Dose: 1 amp Allopurinol (Zyloprim -) 100 mg PO DAILY [facility] Last Admin: 02/03/17 09:01 Dose: 100 mg Amlodipine Besylate (Norvasc -) 5 mg PO DAILY [facility] Last Admin: 02/03/17 09:02 Dose: 5 mg Atorvastatin Calcium (Lipitor -) 20 mg PO HS [facility] Last Admin: 02/03/17 21:34 Dose: 20 mg Doxycycline Hyclate (Vibramycin -) 100 mg PO BID@1000,1800 [facility] Last Admin: 02/03/17 17:44 Dose: 100 mg Hydroxyurea (Hydrea -) 500 mg PO Q12H [facility] Last Admin: 02/04/17 05:37 Dose: 500 mg Ceftriaxone Sodium 2 gm/ (Dextrose) 100 mls @ 200 mls/hr IVPB DAILY [facility] Last Admin: 02/03/17 17:28 Dose: 200 mls/hr Metoprolol Succinate (Toprol Xl -) 100 mg PO DAILY [facility] Last Admin: 02/03/17 09:01 Dose: 100 mg Review of Systems - Review of Systems Constitutional: reports: Weakness denies: Chills or Fever Cardiovascular: as noted above Gastrointestinal: denies: Nausea, Vomiting, Diarrhea, Constipation or Abdominal Pain Genitourinary: No symptoms reported Neurological: No symptoms reported Vital Signs: Last Vital Signs Temp Pulse Resp BP Pulse Ox 98.3 F 62 18 163/76 96 02/04/17 05:40 02/04/17 05:40 02/04/17 05:40 02/04/17 05:40 02/03/17 21:00 Intake & Output 02/01/17 02/02/17 02/03/17 02/04/17 23:59 23:59 23:59 23:59 Intake Total 940 1080 Balance 940 1080 Weight 221 lb 9.6 oz 223 lb 220 lb 3.2 oz Neck: Supple Negative JVD No Bruit Respiratory: Diminished Breath Sounds at the Bases Bilateral Scattered Rhonchi Cardiovascular: S1 S2 Regular Rate and Rhythm Grade 2/6 JENNIFFER Gastrointestinal: Soft Benign Normal Bowel Sounds Ext: Trace Edema Labs: CBC, BMP 02/04/17 05:05 02/04/17 05:05 INR, PTT INR 2.50 (0.82-1.09) H 02/04/17 05:05 Hepatic Panel Total Bilirubin 1.1 mg/dL (0.2-1.0) H D 02/02/17 13:15 AST 72 U/L (15-37) H D 02/02/17 13:15 ALT 32 U/L (12-78) D 02/02/17 13:15 Alkaline Phosphatase 79 U/L (45-117) 02/02/17 13:15 Albumin 3.6 g/dl (3.4-5.0) 02/02/17 13:15 Assessment/Plan ASSESSMENT: 1. Left lower lobe pneumonia, resolving 2. Systolic/diastolic LV dysfunction with chronic class I-II NYHA classification LV failure, compensated/euvolemic 3. CAD post OH, angina pectoris stable 4. PAF currently in sinus rhythm [id number] 4 on Coumadin therapy with therapeutic INR 5. 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 HTN/HCVD 7. 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 COPD 10. CKD 11. Anemia 12. History of essential thrombocytosis PLAN: 1. Continue Toprol XL 2. Continue Norvasc 3. Recommend resumption of ARBS once renal function stabilized 4. Continue Lipitor 5. Continue Coumadin as per INR with close monitoring of CBC 6. Repeat echocardiography to evaluate LV size and function and severity of the above noted valvular pathology Sun Natarajan M.D.
[2017-02-04 07:42] LABS: MCH 40.2 pg (25.7-33.7)
--- NOTE | 2017-02-04 09:07 | PN ---
Progress Note (short form) - Note Progress Note: breathing improved. denies CP, SOB, fever, chills, N/V/C/D, BRBPR, melena, hematuria or cough. Current Medications Generic Name Dose Route Start Last Admin Trade Name Freq PRN Reason Stop Dose Admin Albuterol Sulfate 1 amp 02/02/17 19:20 02/03/17 10:45 Ventolin 0.083% Nebulizer Soln - NEB 1 amp Q4H PRN Administration SHORT OF BREATH/WHEEZING Allopurinol 100 mg 02/03/17 10:00 02/03/17 09:01 Zyloprim - PO 100 mg DAILY [facility] Administration Amlodipine Besylate 5 mg 02/03/17 10:00 02/03/17 09:02 Norvasc - PO 5 mg DAILY [facility] Administration Atorvastatin Calcium 20 mg 02/02/17 22:00 02/03/17 21:34 Lipitor - PO 20 mg HS [facility] Administration Doxycycline Hyclate 100 mg 02/03/17 18:00 02/03/17 17:44 Vibramycin - PO 100 mg BID@1000,1800 [facility] Administration Hydroxyurea 500 mg 02/02/17 16:30 02/04/17 05:37 Hydrea - PO 500 mg Q12H [facility] Administration Ceftriaxone Sodium 2 gm/ 100 mls @ 200 mls/hr 02/03/17 15:15 02/03/17 17:28 Dextrose IVPB 200 mls/hr DAILY [facility] Administration Metoprolol Succinate 100 mg 02/03/17 10:00 02/03/17 09:01 Toprol Xl - PO 100 mg DAILY [facility] Administration Last Vital Signs Temp Pulse Resp BP Pulse Ox 98.3 F 62 18 163/76 96 02/04/17 05:40 02/04/17 05:40 02/04/17 05:40 02/04/17 05:40 02/03/17 21:00 General NAD CV S1 S2 RRR no murmur/rubs/gallops Lungs coarse rales, decreased sounds L base no wheezing Abdomen soft NT/ND Extremities no pedal edema CBCD WBC 9.0 K/mm3 (4.0-10.0) 02/04/17 05:05 RBC 2.42 M/mm3 (4.00-5.60) L 02/04/17 05:05 Hgb 9.7 GM/dL (11.7-16.9) L D 02/04/17 05:05 Hct 28.3 % (35.4-49) L 02/04/17 05:05 MCV 117.1 fl (80-96) H 02/04/17 05:05 MCHC 34.4 g/dl (32.0-35.9) 02/04/17 05:05 RDW 13.3 % (11.9-15.9) 02/04/17 05:05 Plt Count 283 K/MM3 (134-434) 02/04/17 05:05 MPV 9.0 fl (7.5-11.1) 02/04/17 05:05 CMP Sodium 143 mmol/L (136-145) 02/04/17 05:05 Potassium 4.4 mmol/L (3.5-5.1) 02/04/17 05:05 Chloride 108 mmol/L (98-107) H 02/04/17 05:05 Carbon Dioxide 26 mmol/L (21-32) 02/04/17 05:05 Anion Gap 9 (8-16) 02/04/17 05:05 BUN 48 mg/dL (7-18) H 02/04/17 05:05 Creatinine 2.3 mg/dL (0.7-1.3) H 02/04/17 05:05 Creat Clearance w eGFR 21.21 (>60) 02/02/17 13:15 Calcium 8.5 mg/dL (8.5-10.1) 02/04/17 05:05 Total Bilirubin 1.1 mg/dL (0.2-1.0) H D 02/02/17 13:15 AST 72 U/L (15-37) H D 02/02/17 13:15 ALT 32 U/L (12-78) D 02/02/17 13:15 Alkaline Phosphatase 79 U/L (45-117) 02/02/17 13:15 Total Protein 6.9 g/dl (6.4-8.2) 02/02/17 13:15 Albumin 3.6 g/dl (3.4-5.0) 02/02/17 13:15 A/P 76yo M with PMH RCC s/p nephrectomy, Chronic LV diastolic dysfunction, PAF on coumadin, CAD, HTN, COPD, CKD, anemia and essential thrombocytosis presented to the ER with generalized weakness and cough 1. Multilobar PNA L>R- afebrile. leukocytosis trending down. On Doxy and Ceftriaxone day 2. CT scan done and reviewed. will need repeat imaging in 4 weeks. f/u Cx. ID and pulmonary on board 2. ACute on CKD- likely due to dehydration vs medication induced. improved. hold diovan and torsemide. CT abdomen and pelvis to evaluate for mass as hx of RCC negative for acute pathology. avoid nephrotoxic agents. nephrology consulted 3. Hyerkalemia- likely from CKD. resolved 4. Tropinemia- likely demand ischemia. flat trend. no workup at this time. monitor 5. Macrocytic anemia- no signs of bleeding. vitamin B12 and folate pending. no indication for txn. monitor 6. RCC s/p nephrectomy- on hydroxyurea 7. PAF on coumadin- currently in sinus rythym. will hold amio at this time and monitor. consider re-starting if goes into PAF. 8. supratherapeutic INR- now therapeutic. will re-start coumadin at reduced dose. 6mg tonight. repeat INR in AM. 9. HTN- above goal. likely due to holding some medications. will monitor for now. will re-start as remains elevated. controlled. cont metoprolol and norvasc 10. COPD- stable 11. DVT ppx- on coumadin 12. d/c planning tomorrow if continues to improve Visit type - Emergency Visit Emergency Visit: Yes ED Registration Date: 02/02/17 Care time: The patient presented to the Emergency Department on the above date and was hospitalized for further evaluation of their emergent condition. - New Patient This patient is new to me today: No - Critical Care Critical Care patient: No - Discharge Referral Referred to [facility] Med P.C.: No
--- NOTE | 2017-02-04 09:18 | PN ---
Progress Note, Physician Chief Complaint: ID Appears wuite cmfortable Tmax 101 currently temp down NO distress Reports couph Ceftriaoxone and Doxycyline - Current Medication List Current Medications: Active Medications Albuterol Sulfate (Ventolin 0.083% Nebulizer Soln -) 1 amp NEB Q4H PRN PRN Reason: SHORT OF BREATH/WHEEZING Last Admin: 02/03/17 10:45 Dose: 1 amp Allopurinol (Zyloprim -) 100 mg PO DAILY [facility] Last Admin: 02/03/17 09:01 Dose: 100 mg Amlodipine Besylate (Norvasc -) 5 mg PO DAILY [facility] Last Admin: 02/03/17 09:02 Dose: 5 mg Atorvastatin Calcium (Lipitor -) 20 mg PO HS [facility] Last Admin: 02/03/17 21:34 Dose: 20 mg Doxycycline Hyclate (Vibramycin -) 100 mg PO BID@1000,1800 [facility] Last Admin: 02/03/17 17:44 Dose: 100 mg Hydroxyurea (Hydrea -) 500 mg PO Q12H [facility] Last Admin: 02/04/17 05:37 Dose: 500 mg Ceftriaxone Sodium 2 gm/ (Dextrose) 100 mls @ 200 mls/hr IVPB DAILY [facility] Last Admin: 02/03/17 17:28 Dose: 200 mls/hr Metoprolol Succinate (Toprol Xl -) 100 mg PO DAILY [facility] Last Admin: 02/03/17 09:01 Dose: 100 mg - Objective Vital Signs: Vital Signs Temperature 98.3 F 02/04/17 05:40 Pulse Rate 62 02/04/17 05:40 Respiratory Rate 18 02/04/17 05:40 Blood Pressure 163/76 02/04/17 05:40 O2 Sat by Pulse Oximetry (%) 96 02/03/17 21:00 Constitutional: Yes: No Distress Neck: Yes: WNL, Supple Cardiovascular: Yes: Regular Rate and Rhythm, S1, S2 Respiratory: Yes: WNL, Regular, CTA Bilaterally, Rhonchi Gastrointestinal: Yes: Soft. No: Palpable Mass, Tenderness, Epigastrium Edema: No Labs: CBC, BMP 02/04/17 05:05 02/04/17 05:05 INR, PTT INR 2.50 (0.82-1.09) H 02/04/17 05:05 Assessment/Plan Microbiology 02/02/17 14:47 Urine - Urine Clean Catch Urine Culture - Final NO GROWTH OBTAINED Laboratory Tests 02/02/17 02/04/17 02/04/17 13:15 05:05 05:05 WBC 11.5 H D 9.0 Hgb 9.7 L D Hct 28.3 L Plt Count 283 BUN 48 H Creatinine 2.3 H Assessment Pneumonia unspecified Plan Ceftriaxone for today IF afebrile can be switched to jose alfredo Del Rosario MD
[2017-02-04] MEDS: DOXYCYCLINE HYCLATE 100 MG CAPSULE PO SCH ×2 (09:19→17:54)
[2017-02-04] MEDS: METOPROLOL SUCCINATE 100 MG TAB.SR.24H (FP) PO SCH (09:19)
[2017-02-04] MEDS: amLODIPine BESYLATE 5 MG TABLET (FP) PO SCH (09:19)
[2017-02-04] MEDS: ALLOPURINOL 100 MG TABLET (FP) PO SCH (09:19)
--- NOTE | 2017-02-04 10:19 | PN ---
Progress Note, Physician History of Present Illness: pulmonary alert,oob-chair,less dyspneic,+ cough - Current Medication List Current Medications: Active Medications Albuterol Sulfate (Ventolin 0.083% Nebulizer Soln -) 1 amp NEB Q4H PRN PRN Reason: SHORT OF BREATH/WHEEZING Last Admin: 02/03/17 10:45 Dose: 1 amp Allopurinol (Zyloprim -) 100 mg PO DAILY [facility] Last Admin: 02/04/17 09:19 Dose: 100 mg Amlodipine Besylate (Norvasc -) 5 mg PO DAILY [facility] Last Admin: 02/04/17 09:19 Dose: 5 mg Atorvastatin Calcium (Lipitor -) 20 mg PO HS [facility] Last Admin: 02/03/17 21:34 Dose: 20 mg Doxycycline Hyclate (Vibramycin -) 100 mg PO BID@1000,1800 [facility] Last Admin: 02/04/17 09:19 Dose: 100 mg Hydroxyurea (Hydrea -) 500 mg PO Q12H [facility] Last Admin: 02/04/17 05:37 Dose: 500 mg Ceftriaxone Sodium 2 gm/ (Dextrose) 100 mls @ 200 mls/hr IVPB DAILY [facility] Last Admin: 02/03/17 17:28 Dose: 200 mls/hr Metoprolol Succinate (Toprol Xl -) 100 mg PO DAILY [facility] Last Admin: 02/04/17 09:19 Dose: 100 mg - Objective Vital Signs: Vital Signs Temperature 98 F 02/04/17 10:00 Pulse Rate 72 02/04/17 10:00 Respiratory Rate 20 02/04/17 10:00 Blood Pressure 148/74 02/04/17 10:00 O2 Sat by Pulse Oximetry (%) 98 02/04/17 09:00 Constitutional: Yes: Well Nourished, Calm Eyes: Yes: WNL HENT: Yes: WNL Neck: Yes: WNL Cardiovascular: Yes: Pulse Irregular, S1, S2 Respiratory: Yes: Rhonchi, Wheezes (scattered rhonchi,crackles left base) Gastrointestinal: Yes: Normal Bowel Sounds, Soft Extremities: Yes: WNL Edema: No Labs: CBC, BMP 02/04/17 05:05 02/04/17 05:05 INR, PTT INR 2.50 (0.82-1.09) H 02/04/17 05:05 Problem List - Problems (1) Pneumonia Code(s): J18.9 - PNEUMONIA, UNSPECIFIED ORGANISM Assessment/Plan - Problems (1) Renal cell carcinoma Code(s): C64.9 - MALIGNANT NEOPLASM OF UNSP KIDNEY, EXCEPT RENAL PELVIS (2) Acute on chronic combined systolic and diastolic congestive heart failure Code(s): I50.43 - ACUTE ON CHRONIC COMBINED SYSTOLIC AND DIASTOLIC HRT FAIL (3) Acute on chronic renal failure Code(s): N17.9 - ACUTE KIDNEY FAILURE, UNSPECIFIED; N18.9 - CHRONIC KIDNEY DISEASE, UNSPECIFIED (4) Acute pulmonary edema with congestive heart failure Code(s): I50.1 - LEFT VENTRICULAR FAILURE, UNSPECIFIED (5) Anemia Code(s): D64.9 - ANEMIA, UNSPECIFIED Qualifiers: Assessment/Plan PROGRESSIVE RENAL INSUFFICIENCY PAF/DILATED CARDIOMYOPATHY PNEUMONIA ELEVATED TROPONIN/ELEVATED BNP WEIGHT LOSS/FATIGUE ANEMIA ECHO MONITOR BUN/CR ANTICOAGULATION PER INR MONITOR I/Os F/U CHEST X-RAYS INHALED BRONCHODILATORS ANTIBIOTICS PER LINDA TAYLOR Problem List - Problems (1) Pneumonia Code(s): J18.9 - PNEUMONIA, UNSPECIFIED ORGANISM
[2017-02-04] MEDS: CEFTRIAXONE 2 GM in DEXTROSE 5%-WATER - 100 ML IVPB SCH (10:42)
[2017-02-04 11:17] LABS: PLATELET ESTIMATE ADEQUATE; TOTAL CELLS COUNTED 100
[2017-02-04] MEDS ORDERED: WARFARIN NA 3 MG TABLET PO SCH (14:00)
[2017-02-04] MEDS: WARFARIN NA 3 MG TABLET PO SCH (17:53)
[2017-02-04] MEDS: ATORVASTATIN CA 20 MG TABLET (FP) PO SCH (22:45)
[2017-02-05] MEDS: HYDROXYUREA 500 MG CAPSULE PO SCH ×2 (05:39→16:41)
[2017-02-05 07:04] LABS: INR 2.5 (0.82-1.09); PROTHROMBIN TIME (PATIENT) 28.2 SEC (9.98-11.88)
[2017-02-05 07:17] LABS: ANION GAP 7 (8-16); CALCIUM 8.1 mg/dL (8.5-10.1); CO2 26 mmol/L (21-32); CREATININE 2.4 mg/dL (0.7-1.3); GLUCOSE,RANDOM 122 mg/dL (74-106)
--- NOTE | 2017-02-05 08:54 | PN ---
Progress Note (short form) - Note Progress Note: Chief Complaint: Events noted, notes reviewed, confusion and disorientation over night requiring CO, requesting to be D/C home, denies any chest pain but reports persistent dyspnea, denies any orthopnea or PND History of Present Illness: Seen and examined on telemetry. Events noted, notes reviewed, confusion and disorientation over night requiring CO, requesting to be D/C home, denies any chest pain but reports persistent dyspnea, denies any orthopnea or PND Echocardiography dated 01/05/2016 revealed Mild cLVH, mildly decreased LV function, mod LAE, mild-moderate TR, moderate AR and mild MR Medications: Current Medications Albuterol Sulfate (Ventolin 0.083% Nebulizer Soln -) 1 amp NEB Q4H PRN PRN Reason: SHORT OF BREATH/WHEEZING Last Admin: 02/03/17 10:45 Dose: 1 amp Allopurinol (Zyloprim -) 100 mg PO DAILY [facility] Last Admin: 02/04/17 09:19 Dose: 100 mg Amlodipine Besylate (Norvasc -) 5 mg PO DAILY [facility] Last Admin: 02/04/17 09:19 Dose: 5 mg Atorvastatin Calcium (Lipitor -) 20 mg PO HS [facility] Last Admin: 02/04/17 22:45 Dose: Not Given Doxycycline Hyclate (Vibramycin -) 100 mg PO BID@1000,1800 [facility] Last Admin: 02/04/17 17:54 Dose: 100 mg Hydroxyurea (Hydrea -) 500 mg PO Q12H [facility] Last Admin: 02/05/17 05:39 Dose: 500 mg Ceftriaxone Sodium 2 gm/ (Dextrose) 100 mls @ 200 mls/hr IVPB DAILY [facility] Last Admin: 02/04/17 10:42 Dose: 200 mls/hr Metoprolol Succinate (Toprol Xl -) 100 mg PO DAILY [facility] Last Admin: 02/04/17 09:19 Dose: 100 mg Warfarin Sodium (Coumadin -) 6 mg PO DAILY@1800 [facility] Last Admin: 02/04/17 17:53 Dose: 6 mg Review of Systems - Review of Systems Constitutional: reports: Weakness denies: Chills or Fever Cardiovascular: as noted above Gastrointestinal: denies: Nausea, Vomiting, Diarrhea, Constipation or Abdominal Pain Genitourinary: No symptoms reported Neurological: No symptoms reported Vital Signs: Last Vital Signs Temp Pulse Resp BP Pulse Ox 98.7 F 65 20 140/58 98 02/05/17 05:55 02/05/17 05:55 02/05/17 05:55 02/05/17 05:55 02/04/17 09:00 Intake & Output 02/02/17 02/03/17 02/04/17 02/05/17 23:59 23:59 23:59 23:59 Intake Total 940 1080 Balance 940 1080 Weight 221 lb 9.6 oz 223 lb 220 lb 3.2 oz 222 lb Neck: Supple Negative JVD No Bruit Respiratory: Diminished Breath Sounds at the Bases Bilateral Scattered Rhonchi Cardiovascular: S1 S2 Regular Rate and Rhythm Grade 2/6 JENNIFFER Gastrointestinal: Soft Benign Normal Bowel Sounds Ext: Trace Edema Labs: CBC, BMP 02/04/17 05:05 02/05/17 05:05 INR, PTT INR 2.50 (0.82-1.09) H 02/05/17 05:05 Assessment/Plan ASSESSMENT: 1. Left lower lobe pneumonia, resolving 2. Systolic/diastolic LV dysfunction with chronic class I-II NYHA classification LV failure, compensated/euvolemic 3. CAD post DC, angina pectoris evidence of demand ischemia related to the above noted presentation, pneumonia 4. PAF currently in sinus rhythm [id number] 4 on Coumadin therapy with therapeutic INR 5. 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 HTN/HCVD 7. 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 COPD 10. CKD 11. Anemia 12. History of essential thrombocytosis PLAN: 1. Continue Toprol XL 2. Continue Norvasc 3. Recommend resumption of ARBS once renal function stabilized 4. Continue Lipitor 5. Continue Coumadin as per INR with close monitoring of CBC 6. Repeat echocardiography to evaluate LV size and function and severity of the above noted valvular pathology 7. May require neurological evaluation for the above noted organic brain syndrome Sun Natarajan M.D.
[2017-02-05] MEDS: amLODIPine BESYLATE 5 MG TABLET (FP) PO SCH (09:20)
[2017-02-05] MEDS: METOPROLOL SUCCINATE 100 MG TAB.SR.24H (FP) PO SCH (09:20)
[2017-02-05] MEDS: ALLOPURINOL 100 MG TABLET (FP) PO SCH (09:21)
[2017-02-05] MEDS: DOXYCYCLINE HYCLATE 100 MG CAPSULE PO SCH ×2 (09:21→18:01)
[2017-02-05] MEDS: CEFTRIAXONE 2 GM in DEXTROSE 5%-WATER - 100 ML IVPB SCH (09:51)
--- NOTE | 2017-02-05 10:27 | PN ---
Progress Note, Physician History of Present Illness: PULMONARY ALERT,-RESP DISTRESS,CONFUSED LAST NIGHT - Current Medication List Current Medications: Active Medications Albuterol Sulfate (Ventolin 0.083% Nebulizer Soln -) 1 amp NEB Q4H PRN PRN Reason: SHORT OF BREATH/WHEEZING Last Admin: 02/03/17 10:45 Dose: 1 amp Allopurinol (Zyloprim -) 100 mg PO DAILY [facility] Last Admin: 02/05/17 09:21 Dose: 100 mg Amlodipine Besylate (Norvasc -) 5 mg PO DAILY [facility] Last Admin: 02/05/17 09:20 Dose: 5 mg Atorvastatin Calcium (Lipitor -) 20 mg PO HS [facility] Last Admin: 02/04/17 22:45 Dose: Not Given Doxycycline Hyclate (Vibramycin -) 100 mg PO BID@1000,1800 [facility] Last Admin: 02/05/17 09:21 Dose: 100 mg Hydroxyurea (Hydrea -) 500 mg PO Q12H [facility] Last Admin: 02/05/17 05:39 Dose: 500 mg Ceftriaxone Sodium 2 gm/ (Dextrose) 100 mls @ 200 mls/hr IVPB DAILY [facility] Last Admin: 02/05/17 09:51 Dose: 200 mls/hr Metoprolol Succinate (Toprol Xl -) 100 mg PO DAILY [facility] Last Admin: 02/05/17 09:20 Dose: 100 mg Warfarin Sodium (Coumadin -) 6 mg PO DAILY@1800 [facility] Last Admin: 02/04/17 17:53 Dose: 6 mg - Objective Vital Signs: Vital Signs Temperature 98.7 F 02/05/17 05:55 Pulse Rate 65 02/05/17 05:55 Respiratory Rate 20 02/05/17 05:55 Blood Pressure 140/58 02/05/17 05:55 O2 Sat by Pulse Oximetry (%) 98 02/04/17 09:00 Constitutional: Yes: Well Nourished, Calm Eyes: Yes: WNL HENT: Yes: WNL Neck: Yes: WNL Cardiovascular: Yes: Regular Rate and Rhythm, S1, S2 Respiratory: Yes: Rales (CRACKLES LEFT BASE) Gastrointestinal: Yes: Normal Bowel Sounds, Soft Extremities: Yes: WNL Edema: No Labs: CBC, BMP 02/04/17 05:05 02/05/17 05:05 INR, PTT INR 2.50 (0.82-1.09) H 02/05/17 05:05 Problem List - Problems (1) Pneumonia Code(s): J18.9 - PNEUMONIA, UNSPECIFIED ORGANISM Assessment/Plan - Problems (1) Renal cell carcinoma Code(s): C64.9 - MALIGNANT NEOPLASM OF UNSP KIDNEY, EXCEPT RENAL PELVIS (2) Acute on chronic combined systolic and diastolic congestive heart failure Code(s): I50.43 - ACUTE ON CHRONIC COMBINED SYSTOLIC AND DIASTOLIC HRT FAIL (3) Acute on chronic renal failure Code(s): N17.9 - ACUTE KIDNEY FAILURE, UNSPECIFIED; N18.9 - CHRONIC KIDNEY DISEASE, UNSPECIFIED (4) Acute pulmonary edema with congestive heart failure Code(s): I50.1 - LEFT VENTRICULAR FAILURE, UNSPECIFIED (5) Anemia Code(s): D64.9 - ANEMIA, UNSPECIFIED Qualifiers: Assessment/Plan PROGRESSIVE RENAL INSUFFICIENCY PAF/DILATED CARDIOMYOPATHY PNEUMONIA CLINICALLY IMPROVING ELEVATED TROPONIN/ELEVATED BNP WEIGHT LOSS/FATIGUE ANEMIA CONFUSION RESOLVED MONITOR BUN/CR COUMADIN F/U CHEST X-RAYS INHALED BRONCHODILATORS ANTIBIOTICS PER LINDA TAYLOR Problem List - Problems (1) Pneumonia Code(s): J18.9 - PNEUMONIA, UNSPECIFIED ORGANISM
--- NOTE | 2017-02-05 11:18 | PN ---
Teaching Attending Note Name of Resident: Rishabh Meredith ATTENDING PHYSICIAN STATEMENT I saw and evaluated the patient. I reviewed the resident's note and discussed the case with the resident. I agree with the resident's findings and plan as documented. SUBJECTIVE:states he is asymptomatic. breathing has improved. does not recall getting agitated last night. denies Cp, SOB, fever, chills, N/V/C/D OBJECTIVE: Last Vital Signs Temp Pulse Resp BP Pulse Ox 99.2 F 70 18 168/90 97 02/05/17 09:00 02/05/17 09:00 02/05/17 09:00 02/05/17 09:00 02/05/17 09:00 General NAD A&O x1 (self only) CV S1 S2 RRR no murmur/rub/gallop lungs decreased L base. no crackles Abdomen soft NT/ND Extremities no pedal edema ASSESSMENT AND PLAN: 76yo M with PMH RCC s/p nephrectomy, Chronic LV diastolic dysfunction, PAF on coumadin, CAD, HTN, COPD, CKD, anemia and essential thrombocytosis presented to the ER with generalized weakness and cough 1. Multilobar PNA L>R- afebrile. leukocytosis trending down. On Doxy and Ceftriaxone day 3. CT scan done and reviewed. will need repeat imaging in 4 weeks. f/u Cx. ID and pulmonary on board 2. Acute on CKD- likely due to dehydration vs medication induced. improved. hold diovan. CT abdomen and pelvis to evaluate for mass as hx of RCC negative for acute pathology. avoid nephrotoxic agents. nephrology consulted 3. Chronic LV dysfunction- no overt signs of volume overload. however increase in weight over 2 lbs. since kidney function stablized will re-start toresimde to prevent fluid accumulation. 4. Agitation- agitated last night which pt doesnt remember. as per RN he has been more confused today than yesterday. currently pt is pleasantly confused but does not seem to be worse. Head CT from admission with no acute pathology. folate is low and will start folic acid. vitamin b12 and TSH WNL. check RPR will monitor for now. possible ing. 5. Hyerkalemia- likely from CKD. resolved 6. Tropinemia- likely demand ischemia. flat trend. no workup at this time. monitor 7. Macrocytic anemia- no signs of bleeding. vitamin B12 normal and low normal folate. will start folic acid. no indication for txn. monitor 8. RCC s/p nephrectomy- on hydroxyurea 9. PAF on coumadin- currently in sinus rythym. will hold amio at this time and monitor. consider re-starting if goes into PAF. 10. supratherapeutic INR- now therapeutic. cont coumadin 6mg. repeat INR in AM. 11. HTN- above goal. re-start torsemide. controlled. cont metoprolol and norvasc 12. COPD- stable 13. DVT ppx- on coumadin 14. d/c planning tomorrow if continues to improve
--- NOTE | 2017-02-05 11:22 | PN ---
Physical Exam: SUBJECTIVE: Patient seen and examined at bedside. Patient states that he has no chest pain, shortness of breath, nausea, vomiting, diarrhea. When asked about his history, patient went off on a tangent and was not a great historian. OBJECTIVE: Vital Signs Period Temp Pulse Resp BP Sys/Vaqzuez Pulse Ox Last 24 Hr 98.7 F-99.6 F 64-70 18-20 129-168/58-90 97 GENERAL: The patient is awake, alert, and fully oriented, in no acute distress. HEAD: Normal with no signs of trauma. EYES: PERRL, extraocular movements intact, sclera anicteric, conjunctiva clear. No ptosis. ENT: Ears normal, nares patent, oropharynx clear without exudates, moist mucous membranes. NECK: Trachea midline, full range of motion, supple. LUNGS: Breath sounds equal, clear to auscultation bilaterally, no wheezes, mild crackles noted at the lung bases, no accessory muscle use. HEART: Regular rate and rhythm, S1, S2 without murmur, rub or gallop. ABDOMEN: Soft, nontender, nondistended, normoactive bowel sounds, no guarding, no rebound, no hepatosplenomegaly, no masses. EXTREMITIES: 2+ pulses, warm, well-perfused, no edema. NEUROLOGICAL: Cranial nerves II through XII grossly intact. Normal speech, gait not observed. PSYCH: Normal mood, normal affect. SKIN: Warm, dry, normal turgor, no rashes or lesions noted Laboratory Results - last 24 hr 02/04/17 02/05/17 02/05/17 05:05 05:05 05:05 PT with INR 28.20 H INR 2.50 H Sodium 140 Potassium 4.1 Chloride 107 Carbon Dioxide 26 Anion Gap 7 L BUN 50 H Creatinine 2.4 H Random Glucose 122 H D Calcium 8.1 L Vitamin B12 606 Active Medications Generic Name Dose Route Start Last Admin Trade Name Freq PRN Reason Stop Dose Admin Albuterol Sulfate 1 amp 02/02/17 19:20 02/03/17 10:45 Ventolin 0.083% Nebulizer Soln - NEB 1 amp Q4H PRN Administration SHORT OF BREATH/WHEEZING Allopurinol 100 mg 02/03/17 10:00 02/05/17 09:21 Zyloprim - PO 100 mg DAILY COMPA Administration Amlodipine Besylate 5 mg 02/03/17 10:00 02/05/17 09:20 Norvasc - PO 5 mg DAILY COMPA Administration Atorvastatin Calcium 20 mg 02/02/17 22:00 02/04/17 22:45 Lipitor - PO Not Given HS COMPA Doxycycline Hyclate 100 mg 02/03/17 18:00 02/05/17 09:21 Vibramycin - PO 100 mg BID@1000,1800 COMAP Administration Hydroxyurea 500 mg 02/02/17 16:30 02/05/17 05:39 Hydrea - PO 500 mg Q12H COMPA Administration Ceftriaxone Sodium 2 gm/ 100 mls @ 200 mls/hr 02/03/17 15:15 02/05/17 09:51 Dextrose IVPB 200 mls/hr DAILY COMPA Administration Metoprolol Succinate 100 mg 02/03/17 10:00 02/05/17 09:20 Toprol Xl - PO 100 mg DAILY COMPA Administration Warfarin Sodium 6 mg 02/04/17 18:00 02/04/17 17:53 Coumadin - PO 6 mg DAILY@1800 COMPA Administration ASSESSMENT/PLAN: 76 year old male with a past medical history of renal cell carcinoma s/p nephrectomy, systolic CHF, paroxysmal atrial fibrillation on coumadin, CAD, HTN , COPD, CKD, anemia and essential thrombocytosis is being treated in the hospital for multilobar pneumonia #Pneumonia: patient's status has clinically improved -continue doxycycline/ceftriaxone day 3 today -patient was AMS last night and pulled out IV, replace IV -last day of abx #CKD: acute on chronic kidney disease improving, creatinine is decreasing; likely due to dehydration, home torsemide was held on admission -restart torsemide 40mg QD -CT abdomen pelvis shows #Hyperkalemia: from acute on chronic kidney disease -resolved #Afib: supratherapeutic INR now resolved -continue coumadin at 6mg #Troponinemia: likely from CKD + demand ischemia -flat trend #Macrocytic Anemia: controlled #Nephrectomy: patient is controlled #FEN -no standing fluids -replete electrolytes as necessary -sodium controlled diet #Prophylaxis -patient on coumadin #Disposition -discharge planning tomorrow Visit type - Emergency Visit Emergency Visit: No - New Patient This patient is new to me today: Yes Date on this admission: 02/05/17 - Critical Care Critical Care patient: No
[2017-02-05] MEDS ORDERED: TORSEMIDE 20 MG TABLET (FP) PO SCH (11:45)
--- NOTE | 2017-02-05 11:55 | PN ---
Progress Note (short form) - Note Progress Note: RENAL Pt awake and alert comfortable Last Vital Signs Temp Pulse Resp BP Pulse Ox 99.2 F 70 18 168/90 97 02/05/17 09:00 02/05/17 09:00 02/05/17 09:00 02/05/17 09:00 02/05/17 09:00 lungs clear cvs s1s2 rr abd soft ext no edema neuro a+ox3 CBC, BMP 02/04/17 05:05 02/05/17 05:05 Current Medications Generic Name Dose Route Start Last Admin Trade Name Freq PRN Reason Stop Dose Admin Albuterol Sulfate 1 amp 02/02/17 19:20 02/03/17 10:45 Ventolin 0.083% Nebulizer Soln - NEB 1 amp Q4H PRN Administration SHORT OF BREATH/WHEEZING Allopurinol 100 mg 02/03/17 10:00 02/05/17 09:21 Zyloprim - PO 100 mg DAILY COMPA Administration Amlodipine Besylate 5 mg 02/03/17 10:00 02/05/17 09:20 Norvasc - PO 5 mg DAILY COMPA Administration Atorvastatin Calcium 20 mg 02/02/17 22:00 02/04/17 22:45 Lipitor - PO Not Given HS COMPA Doxycycline Hyclate 100 mg 02/03/17 18:00 02/05/17 09:21 Vibramycin - PO 100 mg BID@1000,1800 COMPA Administration Hydroxyurea 500 mg 02/02/17 16:30 02/05/17 05:39 Hydrea - PO 500 mg Q12H COMPA Administration Ceftriaxone Sodium 2 gm/ 100 mls @ 200 mls/hr 02/03/17 15:15 02/05/17 09:51 Dextrose IVPB 200 mls/hr DAILY COMPA Administration Metoprolol Succinate 100 mg 02/03/17 10:00 02/05/17 09:20 Toprol Xl - PO 100 mg DAILY COMPA Administration Torsemide 40 mg 02/05/17 11:45 Demadex - PO DAILY COMPA Warfarin Sodium 6 mg 02/04/17 18:00 02/04/17 17:53 Coumadin - PO 6 mg DAILY@1800 COMPA Administration Impression 1. CKD- renal function stable 2. hx renal cell cancer- rule out recurrence 3. weight loss 4. hyperlipidemia 5. HTN 6. complex left renal lesion 7. PNA 8. high PSA Plan -might need to have CT scan with contrast to better evaluate the complex cyst. Will need to be prepped. MRI w imani also a possibility if he drops his creatinine further and mainatins an egfr of more than 30 continue antibiotics for now and further imaging to be done after treatment for pneumonia avoid other nephrotoxins and hypotensive episodes MV
[2017-02-05] MEDS: WARFARIN NA 3 MG TABLET PO SCH (18:01)
[2017-02-05] MEDS: ATORVASTATIN CA 20 MG TABLET (FP) PO SCH (21:17)
[2017-02-06] MEDS: HYDROXYUREA 500 MG CAPSULE PO SCH ×2 (05:45→17:27)
[2017-02-06 07:21] LABS: BASOPHIL 2.6 % (0-2.0); EOSINOPHIL 1.7 % (0-4.5); MCHC 34.2 g/dl (32.0-35.9); NEUTROPHILS 77.6 % (42.8-82.8); PLATELET COUNT 354 K/MM3 (134-434); RDW 13.2 % (11.9-15.9)
[2017-02-06 07:33] LABS: INR 2.38 (0.82-1.09); PROTHROMBIN TIME (PATIENT) 26.9 SEC (9.98-11.88)
[2017-02-06 07:42] LABS: MCH 40.1 pg (25.7-33.7)
[2017-02-06 07:46] LABS: ANION GAP 9 (8-16); CALCIUM 8.9 mg/dL (8.5-10.1); CO2 27 mmol/L (21-32); CREATININE 2.8 mg/dL (0.7-1.3); GLUCOSE,RANDOM 96 mg/dL (74-106)
[2017-02-06] MEDS: amLODIPine BESYLATE 5 MG TABLET (FP) PO SCH (09:29)
[2017-02-06] MEDS: ALLOPURINOL 100 MG TABLET (FP) PO SCH (09:29)
[2017-02-06] MEDS: FOLIC ACID 1 MG TABLET (FP) PO SCH (09:29)
[2017-02-06] MEDS: DOXYCYCLINE HYCLATE 100 MG CAPSULE PO SCH ×2 (09:29→17:27)
[2017-02-06] MEDS: METOPROLOL SUCCINATE 100 MG TAB.SR.24H (FP) PO SCH (09:29)
[2017-02-06] MEDS: CEFTRIAXONE 2 GM in DEXTROSE 5%-WATER - 100 ML IVPB SCH (10:50)
--- NOTE | 2017-02-06 12:05 | PN ---
Progress Note (short form) - Note Progress Note: Resting in NAD on RA. Breathing feels overall better. Some dry cough. No hemoptysis. Intake & Output 02/03/17 02/04/17 02/05/17 02/06/17 23:59 23:59 23:59 23:59 Intake Total 1080 160 Balance 1080 160 Weight 223 lb 220 lb 3.2 oz 222 lb 272 lb 3.2 oz Last Vital Signs Temp Pulse Resp BP Pulse Ox 97.5 F L 76 20 138/75 99 02/06/17 09:47 02/06/17 09:47 02/06/17 09:47 02/06/17 09:47 02/05/17 21:00 Active Medications Albuterol Sulfate (Ventolin 0.083% Nebulizer Soln -) 1 amp NEB Q4H PRN PRN Reason: SHORT OF BREATH/WHEEZING Last Admin: 02/03/17 10:45 Dose: 1 amp Allopurinol (Zyloprim -) [address] [facility] Last Admin: 02/06/17 09:29 Dose: 100 mg Amlodipine Besylate (Norvasc -) [address] [facility] Last Admin: 02/06/17 09:29 Dose: 5 mg Atorvastatin Calcium (Lipitor -) [address] [facility] Last Admin: 02/05/17 21:17 Dose: 20 mg Doxycycline Hyclate (Vibramycin -) 100 mg PO BID@1000,1800 [facility] Last Admin: 02/06/17 09:29 Dose: 100 mg Folic Acid (Folic Acid -) [address] [facility] Last Admin: 02/06/17 09:29 Dose: 1 mg Hydroxyurea (Hydrea -) [address] [facility] Last Admin: 02/06/17 05:45 Dose: 500 mg Ceftriaxone Sodium 2 gm/ (Dextrose) 100 mls @ 200 mls/hr IVPB DAILY [facility] Last Admin: 02/06/17 10:50 Dose: 200 mls/hr Metoprolol Succinate (Toprol Xl -) [address] [facility] Last Admin: 02/06/17 09:29 Dose: 100 mg Warfarin Sodium (Coumadin -) 6 mg PO DAILY@1800 [facility] Last Admin: 02/05/17 18:01 Dose: 6 mg Constitutional: Yes: NAD Eyes: Yes: WNL HENT: Yes: WNL Neck: Yes: WNL Cardiovascular: Yes: Regular Rate and Rhythm, S1, S2 Respiratory: Yes: Few basilar rhonchi Gastrointestinal: Yes: Normal Bowel Sounds, Soft Extremities: Yes: WNL Edema: No Labs: Laboratory Results - last 24 hr 02/06/17 02/06/17 02/06/17 05:35 05:35 05:35 WBC 6.0 D RBC 2.62 L Hgb 10.5 L Hct 30.6 L MCV 117.0 H MCH 40.1 H MCHC 34.2 RDW 13.2 Plt Count 354 D MPV 9.0 Neutrophils % 77.6 Lymphocytes % 8.6 D Monocytes % 9.5 D Eosinophils % 1.7 Basophils % 2.6 H PT with INR 26.90 H INR 2.38 H Sodium 142 Potassium 4.4 Chloride 106 Carbon Dioxide 27 Anion Gap 9 BUN 59 H Creatinine 2.8 H Random Glucose 96 D Calcium 8.9 RPR Titer 02/06/17 05:35 WBC RBC Hgb Hct MCV MCH MCHC RDW Plt Count MPV Neutrophils % Lymphocytes % Monocytes % Eosinophils % Basophils % PT with INR INR Sodium Potassium Chloride Carbon Dioxide Anion Gap BUN Creatinine Random Glucose Calcium RPR Titer Nonreactive Problem List - Problems (1) Pneumonia Code(s): J18.9 - PNEUMONIA, UNSPECIFIED ORGANISM Assessment/Plan - Problems (1) Renal cell carcinoma Code(s): C64.9 - MALIGNANT NEOPLASM OF UNSP KIDNEY, EXCEPT RENAL PELVIS (2) Acute on chronic combined systolic and diastolic congestive heart failure Code(s): I50.43 - ACUTE ON CHRONIC COMBINED SYSTOLIC AND DIASTOLIC HRT FAIL (3) Acute on chronic renal failure Code(s): N17.9 - ACUTE KIDNEY FAILURE, UNSPECIFIED; N18.9 - CHRONIC KIDNEY DISEASE, UNSPECIFIED (4) Acute pulmonary edema with congestive heart failure Code(s): I50.1 - LEFT VENTRICULAR FAILURE, UNSPECIFIED (5) Anemia Code(s): D64.9 - ANEMIA, UNSPECIFIED Qualifiers: Assessment/Plan PROGRESSIVE RENAL INSUFFICIENCY PAF/DILATED CARDIOMYOPATHY PNEUMONIA CLINICALLY IMPROVING ELEVATED TROPONIN/ELEVATED BNP WEIGHT LOSS/FATIGUE ANEMIA CONFUSION RESOLVED MONITOR BUN/CR COUMADIN INHALED BRONCHODILATORS ANTIBIOTICS PER ID O2 NEEDED DR NIXON
--- NOTE | 2017-02-06 12:12 | PN ---
Progress Note, Physician Chief Complaint: Not in distress History of Present Illness: Feels better. Patient was seen and examined. Awake and alert. Chart was reviewed Denies chest pain, less SOB and no cough. No palpitations - Current Medication List Current Medications: Active Medications Albuterol Sulfate (Ventolin 0.083% Nebulizer Soln -) 1 amp NEB Q4H PRN PRN Reason: SHORT OF BREATH/WHEEZING Last Admin: 02/03/17 10:45 Dose: 1 amp Allopurinol (Zyloprim -) 100 mg PO DAILY [facility] Last Admin: 02/06/17 09:29 Dose: 100 mg Amlodipine Besylate (Norvasc -) 5 mg PO DAILY [facility] Last Admin: 02/06/17 09:29 Dose: 5 mg Atorvastatin Calcium (Lipitor -) 20 mg PO HS [facility] Last Admin: 02/05/17 21:17 Dose: 20 mg Doxycycline Hyclate (Vibramycin -) 100 mg PO BID@1000,1800 [facility] Last Admin: 02/06/17 09:29 Dose: 100 mg Folic Acid (Folic Acid -) 1 mg PO DAILY [facility] Last Admin: 02/06/17 09:29 Dose: 1 mg Hydroxyurea (Hydrea -) 500 mg PO Q12H [facility] Last Admin: 02/06/17 05:45 Dose: 500 mg Ceftriaxone Sodium 2 gm/ (Dextrose) 100 mls @ 200 mls/hr IVPB DAILY [facility] Last Admin: 02/06/17 10:50 Dose: 200 mls/hr Metoprolol Succinate (Toprol Xl -) 100 mg PO DAILY [facility] Last Admin: 02/06/17 09:29 Dose: 100 mg Warfarin Sodium (Coumadin -) 6 mg PO DAILY@1800 [facility] Last Admin: 02/05/17 18:01 Dose: 6 mg - Objective Vital Signs: Vital Signs Temperature 97.5 F L 02/06/17 09:47 Pulse Rate 76 02/06/17 09:47 Respiratory Rate 20 02/06/17 09:47 Blood Pressure 138/75 02/06/17 09:47 O2 Sat by Pulse Oximetry (%) 99 02/05/17 21:00 Cardiovascular: Yes: Regular Rate and Rhythm, Murmur (JENNIFFER), S1, S2 Respiratory: Yes: CTA Bilaterally Gastrointestinal: Yes: Normal Bowel Sounds, Soft. No: Tenderness Edema: No Additional Findings/Remarks: - Review of Systems Constitutional: reports: Weakness denies: Chills or Fever Cardiovascular: (+) SOB, denies chest pain, palpitation Pulmonary: denies cough, sputum production, hemoptysis Gastrointestinal: denies: Nausea, Vomiting, Diarrhea, Constipation or Abdominal Pain Genitourinary: No symptoms reported Neurological: denies seizure, syncope Labs: CBC, BMP 02/06/17 05:35 02/06/17 05:35 INR, PTT INR 2.38 (0.82-1.09) H 02/06/17 05:35 Problem List - Problems (1) Acute on chronic combined systolic and diastolic congestive heart failure Code(s): I50.43 - ACUTE ON CHRONIC COMBINED SYSTOLIC AND DIASTOLIC HRT FAIL (2) Acute on chronic renal failure Code(s): N17.9 - ACUTE KIDNEY FAILURE, UNSPECIFIED; N18.9 - CHRONIC KIDNEY DISEASE, UNSPECIFIED (3) Acute pulmonary edema with congestive heart failure Code(s): I50.1 - LEFT VENTRICULAR FAILURE, UNSPECIFIED (4) Acute respiratory failure with hypoxia Code(s): J96.01 - ACUTE RESPIRATORY FAILURE WITH HYPOXIA (5) Anemia Code(s): D64.9 - ANEMIA, UNSPECIFIED Qualifiers: Anemia type: due to chronic kidney disease Chronic kidney disease stage: stage 3 (moderate) Qualified Code(s): N18.3 - Chronic kidney disease, stage 3 (moderate); D63.1 - Anemia in chronic kidney disease; D63.1 - Anemia in chronic kidney disease (6) Aortic regurgitation Code(s): I35.1 - NONRHEUMATIC AORTIC (VALVE) INSUFFICIENCY Qualifiers: Cardiac valve disease etiology: nonrheumatic Qualified Code(s): I35.1 - Nonrheumatic aortic (valve) insufficiency (7) Atrial fibrillation Code(s): I48.91 - UNSPECIFIED ATRIAL FIBRILLATION Qualifiers: Atrial fibrillation type: paroxysmal Qualified Code(s): I48.0 - Paroxysmal atrial fibrillation (8) Community acquired pneumonia Code(s): J18.9 - PNEUMONIA, UNSPECIFIED ORGANISM Qualifiers: Laterality: left Lung location: lower lobe of lung Qualified Code(s): J18.1 - Lobar pneumonia, unspecified organism (9) Demand ischemia Code(s): I24.8 - OTHER FORMS OF ACUTE ISCHEMIC HEART DISEASE (10) Diastolic dysfunction without heart failure Code(s): I51.9 - HEART DISEASE, UNSPECIFIED (11) Obstructive sleep apnea Code(s): G47.33 - OBSTRUCTIVE SLEEP APNEA (ADULT) (PEDIATRIC) (12) Pulmonary HTN Code(s): I27.2 - OTHER SECONDARY PULMONARY HYPERTENSION * DO NOT USE * (13) Coronary artery disease Code(s): I25.10 - ATHSCL HEART DISEASE OF [place] CORONARY ARTERY W/O ANG PCTRS Qualifiers: Coronary Disease-Associated Artery/Lesion type: [place] artery [place] vs. transplanted heart: [place] heart Associated angina: without angina Qualified Code(s): I25.10 - Atherosclerotic heart disease of [place] coronary artery without angina pectoris (14) Hyperlipidemia Code(s): E78.5 - HYPERLIPIDEMIA, UNSPECIFIED Qualifiers: Hyperlipidemia type: pure hypercholesterolemia Qualified Code(s): E78.00 - Pure hypercholesterolemia, unspecified; E78.0 - Pure hypercholesterolemia (15) Hypertensive cardiovascular-renal disease Code(s): I13.10 - HYP HRT & CHR KDNY DIS W/O HRT FAIL, W STG 1-4/UNSP CHR KDNY Qualifiers: Hypertensive chronic kidney disease stage: stage 1-4 or unspecified chronic kidney disease Heart failure presence: with heart failure Qualified Code(s) : I13.0 - Hypertensive heart and chronic kidney disease with heart failure and stage 1 through stage 4 chronic kidney disease, or unspecified chronic kidney disease Assessment/Plan 1. Left lower lobe pneumonia, resolving 2. Systolic/diastolic LV dysfunction with chronic class I-II NYHA classification LV failure, compensated/euvolemic 3. CAD post RI, angina pectoris evidence of demand ischemia related to the above noted presentation, pneumonia 4. PAF currently in sinus rhythm [id number] 4 on Coumadin therapy with therapeutic INR 5. 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 HTN/HCVD 7. 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 COPD 10. CKD 11. Anemia 12. History of essential thrombocytosis PLAN: 1. Continue Toprol XL and Norvasc 2. Recommend resumption of ARB once renal function stabilized 3. Continue Lipitor 4. Continue Coumadin as per INR with close monitoring of CBC 5. Repeat echocardiography to evaluate LV size and function and severity of the above noted valvular pathology 6. May require neurological evaluation for the above noted organic brain syndrome Patient was seen, examined and counseled for 25 min Further plans are to follow Ravinder Morris MD
--- NOTE | 2017-02-06 13:00 | PN ---
Teaching Attending Note Name of Resident: Rishabh Meredith ATTENDING PHYSICIAN STATEMENT I saw and evaluated the patient. I reviewed the resident's note and discussed the case with the resident. I agree with the resident's findings and plan as documented. SUBJECTIVE:asymptomatic. states breathing has improved. denies CP, SOB< fever, chills, cough, pedal edema OBJECTIVE: Last Vital Signs Temp Pulse Resp BP Pulse Ox 97.5 F L 76 20 138/75 99 02/06/17 09:47 02/06/17 09:47 02/06/17 09:47 02/06/17 09:47 02/05/17 21:00 General NAD A&O x2 (self and location only) CV S1 S2 RRR no murmur/rub/gallop lungs crackles L base Abdomen soft NT/ND Extremities no pedal edema ASSESSMENT AND PLAN: 76yo M with PMH RCC s/p nephrectomy, Chronic LV diastolic dysfunction, PAF on coumadin, CAD, HTN, COPD, CKD, anemia and essential thrombocytosis presented to the ER with generalized weakness and cough 1. Multilobar PNA L>R- afebrile. leukocytosis resolved. On Doxy and Ceftriaxone day 4. can likely be transitioned to po today. will need repeat imaging in 4 weeks. f/u Cx. ID and pulmonary on board 2. Acute on CKD- likely due to dehydration vs medication induced. trended up. re -start toresmide yesterday due to signs of volume retention. will hold today. will speak with neprhology. will hold IVF at this time due to fluid retention. avoid nephrotoxic agents. nephrology consulted 3. Chronic LV dysfunction-clinically has some signs of fluid retention and was started on torsemide. however due to kidney function will need to hold. echo pending for today. cardio consulted 4. Agitation- possible . no episodes last night. pt appears more alert today. metabolic workup has been negtive. RPR negative. no further workup at this time. 5. Hyerkalemia- likely from CKD. resolved 6. Tropinemia- likely demand ischemia. flat trend. no workup at this time. monitor 7. Macrocytic anemia- no signs of bleeding. vitamin B12 normal and low normal folate. started on folic acid. no indication for txn. monitor 8. RCC s/p nephrectomy- on hydroxyurea 9. PAF on coumadin- currently in sinus rythym. will hold amio at this time and monitor. consider re-starting if goes into PAF. 10. supratherapeutic INR- now therapeutic. cont coumadin 6mg. repeat INR in AM. 11. HTN- slightly above goal. torsemide and ARB held. will cont to hold due to kidney function. cont metoprolol and norvasc 12. COPD- stable 13. DVT ppx- on coumadin
--- NOTE | 2017-02-06 13:29 | PN ---
Progress Note, Physician History of Present Illness: Pt seen and examined at bedside. He is awake and appears comfortable. He denies shortness of breath. - Current Medication List Current Medications: Active Medications Albuterol Sulfate (Ventolin 0.083% Nebulizer Soln -) 1 amp NEB Q4H PRN PRN Reason: SHORT OF BREATH/WHEEZING Last Admin: 02/03/17 10:45 Dose: 1 amp Allopurinol (Zyloprim -) 100 mg PO DAILY [facility] Last Admin: 02/06/17 09:29 Dose: 100 mg Amlodipine Besylate (Norvasc -) 5 mg PO DAILY [facility] Last Admin: 02/06/17 09:29 Dose: 5 mg Atorvastatin Calcium (Lipitor -) 20 mg PO HS [facility] Last Admin: 02/05/17 21:17 Dose: 20 mg Doxycycline Hyclate (Vibramycin -) 100 mg PO BID@1000,1800 [facility] Last Admin: 02/06/17 09:29 Dose: 100 mg Folic Acid (Folic Acid -) 1 mg PO DAILY [facility] Last Admin: 02/06/17 09:29 Dose: 1 mg Hydroxyurea (Hydrea -) 500 mg PO Q12H [facility] Last Admin: 02/06/17 05:45 Dose: 500 mg Ceftriaxone Sodium 2 gm/ (Dextrose) 100 mls @ 200 mls/hr IVPB DAILY [facility] Last Admin: 02/06/17 10:50 Dose: 200 mls/hr Metoprolol Succinate (Toprol Xl -) 100 mg PO DAILY [facility] Last Admin: 02/06/17 09:29 Dose: 100 mg Warfarin Sodium (Coumadin -) 6 mg PO DAILY@1800 [facility] Last Admin: 02/05/17 18:01 Dose: 6 mg - Objective Vital Signs: Vital Signs Temperature 97.5 F L 02/06/17 09:47 Pulse Rate 76 02/06/17 09:47 Respiratory Rate 20 02/06/17 09:47 Blood Pressure 138/75 02/06/17 09:47 O2 Sat by Pulse Oximetry (%) 99 02/05/17 21:00 Constitutional: Yes: Calm Eyes: Yes: Conjunctiva Clear HENT: Yes: Atraumatic Neck: Yes: Supple Cardiovascular: Yes: S1, S2 Respiratory: Yes: CTA Bilaterally Gastrointestinal: Yes: Soft Genitourinary: Yes: WNL Musculoskeletal: Yes: WNL Edema: Yes Edema: LLE: 1+, RLE: 1+ Neurological: Yes: Oriented Psychiatric: Yes: Oriented Labs: CBC, BMP 02/06/17 05:35 02/06/17 05:35 INR, PTT INR 2.38 (0.82-1.09) H 02/06/17 05:35 Problem List - Problems (1) CKD (chronic kidney disease) Code(s): N18.9 - CHRONIC KIDNEY DISEASE, UNSPECIFIED (2) Renal cell carcinoma Code(s): C64.9 - MALIGNANT NEOPLASM OF UNSP KIDNEY, EXCEPT RENAL PELVIS Assessment/Plan Current Medications Generic Name Dose Route Start Last Admin Trade Name Freq PRN Reason Stop Dose Admin Albuterol Sulfate 1 amp 02/02/17 19:20 02/03/17 10:45 Ventolin 0.083% Nebulizer Soln - NEB 1 amp Q4H PRN Administration SHORT OF BREATH/WHEEZING Allopurinol 100 mg 02/03/17 10:00 02/06/17 09:29 Zyloprim - PO 100 mg DAILY [facility] Administration Amlodipine Besylate 5 mg 02/03/17 10:00 02/06/17 09:29 Norvasc - PO 5 mg DAILY [facility] Administration Atorvastatin Calcium 20 mg 02/02/17 22:00 02/05/17 21:17 Lipitor - PO 20 mg HS [facility] Administration Doxycycline Hyclate 100 mg 02/03/17 18:00 02/06/17 09:29 Vibramycin - PO 100 mg BID@1000,1800 [facility] Administration Folic Acid 1 mg 02/06/17 10:00 02/06/17 09:29 Folic Acid - PO 1 mg DAILY [facility] Administration Hydroxyurea 500 mg 02/02/17 16:30 02/06/17 05:45 Hydrea - PO 500 mg Q12H [facility] Administration Ceftriaxone Sodium 2 gm/ 100 mls @ 200 mls/hr 02/03/17 15:15 02/06/17 10:50 Dextrose IVPB 200 mls/hr DAILY [facility] Administration Metoprolol Succinate 100 mg 02/03/17 10:00 02/06/17 09:29 Toprol Xl - PO 100 mg DAILY [facility] Administration Warfarin Sodium 6 mg 02/04/17 18:00 02/05/17 18:01 Coumadin - PO 6 mg DAILY@1800 [facility] Administration Impression 1. CKD 2. hx renal cell cancer 3. weight loss 4. hyperlipidemia 5. HTN 6. complex left renal lesion 7. PNA Plan - creatinine is rising - would hold diuretics today - can hold off fluids - repeat labs in am - renal lesion may need IV contrast for imaging, will need to discuss with urology. Pt will need to be prepped before it is done as he is at risk for JOHNSON - cont current meds - will follow Dr nSow
--- NOTE | 2017-02-06 16:00 | PN ---
Progress Note (short form) - Note Progress Note: feels well less cough day #4 antibiotics Vital Signs Period Temp Pulse Resp BP Sys/Vazquez Pulse Ox Last 24 Hr 97.4 F-98.4 F 62-76 20-20 138-150/71-78 97-99 cor-rrr lungs crackles left base abd soft,nt ext no edema CBC, BMP 02/06/17 05:35 02/06/17 05:35 Microbiology 02/03/17 15:15 Blood - Peripheral Venous Blood Culture - Preliminary NO GROWTH OBTAINED AFTER 72 HOURS, INCUBATION TO CONTINUE FOR 2 DAYS. 02/03/17 15:15 Blood - Peripheral Venous Blood Culture - Preliminary NO GROWTH OBTAINED AFTER 72 HOURS, INCUBATION TO CONTINUE FOR 2 DAYS. 02/03/17 17:00 Urine For Antigen Detection Legionella Antigen - Final 02/03/17 17:00 Urine For Antigen Detection Streptococcus pneumoniae Antigen (M - Final 02/02/17 14:47 Urine - Urine Clean Catch Urine Culture - Final NO GROWTH OBTAINED Current Medications Albuterol Sulfate (Ventolin 0.083% Nebulizer Soln -) 1 amp NEB Q4H PRN PRN Reason: SHORT OF BREATH/WHEEZING Last Admin: 02/03/17 10:45 Dose: 1 amp Allopurinol (Zyloprim -) 100 mg PO DAILY [facility] Last Admin: 02/06/17 09:29 Dose: 100 mg Amlodipine Besylate (Norvasc -) 5 mg PO DAILY [facility] Last Admin: 02/06/17 09:29 Dose: 5 mg Atorvastatin Calcium (Lipitor -) 20 mg PO HS [facility] Last Admin: 02/05/17 21:17 Dose: 20 mg Doxycycline Hyclate (Vibramycin -) 100 mg PO BID@1000,1800 [facility] Last Admin: 02/06/17 09:29 Dose: 100 mg Folic Acid (Folic Acid -) 1 mg PO DAILY [facility] Last Admin: 02/06/17 09:29 Dose: 1 mg Hydroxyurea (Hydrea -) 500 mg PO Q12H [facility] Last Admin: 02/06/17 05:45 Dose: 500 mg Ceftriaxone Sodium 2 gm/ (Dextrose) 100 mls @ 200 mls/hr IVPB DAILY [facility] Last Admin: 02/06/17 10:50 Dose: 200 mls/hr Metoprolol Succinate (Toprol Xl -) 100 mg PO DAILY [facility] Last Admin: 02/06/17 09:29 Dose: 100 mg Warfarin Sodium (Coumadin -) 6 mg PO DAILY@1800 [facility] Last Admin: 02/05/17 18:01 Dose: 6 mg suggest continue treatment for CAP-improving rocephin/doxy day #4 can switch to po ceftin/doxy when ready for discharge- complete total 7 days macrocytic anemia ckd history to renal cell ca-abnl ct scan- will need urology f/u please call back if needed Problem List - Problems (1) Pneumonia Code(s): J18.9 - PNEUMONIA, UNSPECIFIED ORGANISM (2) Acute on chronic renal failure Code(s): N17.9 - ACUTE KIDNEY FAILURE, UNSPECIFIED; N18.9 - CHRONIC KIDNEY DISEASE, UNSPECIFIED (3) Renal cell carcinoma Code(s): C64.9 - MALIGNANT NEOPLASM OF UNSP KIDNEY, EXCEPT RENAL PELVIS
--- NOTE | 2017-02-06 16:58 | PN ---
Physical Exam: SUBJECTIVE: Patient seen and examined at bedside. denies any current complaints. Patient is slightly altered and cannot recall answers to some questions. Denies SOB. OBJECTIVE: Vital Signs Period Temp Pulse Resp BP Sys/Vazquez Pulse Ox Last 24 Hr 97.4 F-98.4 F 62-76 20-20 138-150/71-78 97-99 GENERAL: The patient is awake, alert, and fully oriented, in no acute distress. HEAD: Normal with no signs of trauma. EYES: PERRL, extraocular movements intact, sclera anicteric, conjunctiva clear. No ptosis. ENT: Ears normal, nares patent, oropharynx clear without exudates, moist mucous membranes. NECK: Trachea midline, full range of motion, supple. LUNGS: Breath sounds equal, clear to auscultation bilaterally, no wheezes, mild crackles noted on exam bibasilar, no accessory muscle use. HEART: Regular rate and rhythm, S1, S2 without murmur, rub or gallop. ABDOMEN: Soft, nontender, nondistended, normoactive bowel sounds, no guarding, no rebound, no hepatosplenomegaly, no masses. EXTREMITIES: 2+ pulses, warm, well-perfused, no edema. NEUROLOGICAL: Cranial nerves II through XII grossly intact. Normal speech, gait not observed. PSYCH: Normal mood, normal affect. SKIN: Warm, dry, normal turgor, no rashes or lesions noted Laboratory Results - last 24 hr 02/06/17 02/06/17 02/06/17 05:35 05:35 05:35 WBC 6.0 D RBC 2.62 L Hgb 10.5 L Hct 30.6 L MCV 117.0 H MCH 40.1 H MCHC 34.2 RDW 13.2 Plt Count 354 D MPV 9.0 Neutrophils % 77.6 Lymphocytes % 8.6 D Monocytes % 9.5 D Eosinophils % 1.7 Basophils % 2.6 H PT with INR 26.90 H INR 2.38 H Sodium 142 Potassium 4.4 Chloride 106 Carbon Dioxide 27 Anion Gap 9 BUN 59 H Creatinine 2.8 H Random Glucose 96 D Calcium 8.9 RPR Titer 02/06/17 05:35 WBC RBC Hgb Hct MCV MCH MCHC RDW Plt Count MPV Neutrophils % Lymphocytes % Monocytes % Eosinophils % Basophils % PT with INR INR Sodium Potassium Chloride Carbon Dioxide Anion Gap BUN Creatinine Random Glucose Calcium RPR Titer Nonreactive Active Medications Generic Name Dose Route Start Last Admin Trade Name Freq PRN Reason Stop Dose Admin Albuterol Sulfate 1 amp 02/02/17 19:20 02/03/17 10:45 Ventolin 0.083% Nebulizer Soln - NEB 1 amp Q4H PRN Administration SHORT OF BREATH/WHEEZING Allopurinol 100 mg 02/03/17 10:00 02/06/17 09:29 Zyloprim - PO 100 mg DAILY [facility] Administration Amlodipine Besylate 5 mg 02/03/17 10:00 02/06/17 09:29 Norvasc - PO 5 mg DAILY [facility] Administration Atorvastatin Calcium 20 mg 02/02/17 22:00 02/05/17 21:17 Lipitor - PO 20 mg HS [facility] Administration Doxycycline Hyclate 100 mg 02/03/17 18:00 02/06/17 09:29 Vibramycin - PO 100 mg BID@1000,1800 [facility] Administration Folic Acid 1 mg 02/06/17 10:00 02/06/17 09:29 Folic Acid - PO 1 mg DAILY [facility] Administration Hydroxyurea 500 mg 02/02/17 16:30 02/06/17 05:45 Hydrea - PO 500 mg Q12H [facility] Administration Ceftriaxone Sodium 2 gm/ 100 mls @ 200 mls/hr 02/03/17 15:15 02/06/17 10:50 Dextrose IVPB 200 mls/hr DAILY [facility] Administration Metoprolol Succinate 100 mg 02/03/17 10:00 02/06/17 09:29 Toprol Xl - PO 100 mg DAILY [facility] Administration Warfarin Sodium 6 mg 02/04/17 18:00 02/05/17 18:01 Coumadin - PO 6 mg DAILY@1800 [facility] Administration ASSESSMENT/PLAN: 76 year old male with a past medical history of renal cell carcinoma s/p nephrectomy, systolic CHF, paroxysmal atrial fibrillation on coumadin, CAD, HTN , COPD, CKD, anemia and essential thrombocytosis is being treated in the hospital for multilobar pneumonia #Pneumonia: patient's status has clinically improved -continue doxycycline/ceftriaxone day 4 today -patient is slightly altered -echo - pulmonary hypertension, RVSP 40-50mmhg #CKD: acute on chronic kidney disease worsened today, creatinine increased -hold torsemide 40mg QD -hold fluids -appreciate nephro consult #Hyperkalemia: from acute on chronic kidney disease -resolved #Afib: supratherapeutic INR now resolved -continue coumadin at 6mg #Troponinemia: likely from CKD + demand ischemia -flat trend #Macrocytic Anemia: controlled #Nephrectomy: patient is controlled #FEN -no standing fluids -replete electrolytes as necessary -sodium controlled diet #Prophylaxis -patient on coumadin #Disposition -discharge planning tomorrow Visit type - Emergency Visit Emergency Visit: No - New Patient This patient is new to me today: No - Critical Care Critical Care patient: No
[2017-02-06] MEDS: WARFARIN NA 3 MG TABLET PO SCH (17:27)
--- NOTE | 2017-02-06 17:29 | PN ---
Progress Note (short form) - Note Progress Note: CT shows stable complex renal cysts PSA elevated enlarged prostate on CT as well will need prostate biopsy as outpt
[2017-02-06] MEDS: ATORVASTATIN CA 20 MG TABLET (FP) PO SCH (21:24)
[2017-02-07] MEDS: HYDROXYUREA 500 MG CAPSULE PO SCH (05:51)
[2017-02-07 07:38] LABS: MCH 38.9 pg (25.7-33.7); MCHC 33.2 g/dl (32.0-35.9); MEAN CELL VOLUME 117.1 fl (80-96); MEAN PLT VOLUME 8.7 fl (7.5-11.1); PLATELET COUNT 354 K/MM3 (134-434); RDW 13.5 % (11.9-15.9); WHITE BLOOD COUNT 5.6 K/mm3 (4.0-10.0)
[2017-02-07 08:01] LABS: ANION GAP 7 (8-16); CALCIUM 8.2 mg/dL (8.5-10.1); CO2 27 mmol/L (21-32); GLUCOSE,RANDOM 93 mg/dL (74-106)
[2017-02-07 08:02] LABS: CREATININE 2.3 mg/dL (0.7-1.3)
--- NOTE | 2017-02-07 08:31 | PN ---
Physical Exam: SUBJECTIVE: Patient seen and examined at bedside. No acute complaints, no SOB, fever, chills, chest pain, nausea, vomiting. OBJECTIVE: Vital Signs Period Temp Pulse Resp BP Sys/Vazquez Pulse Ox Last 24 Hr 97.5 F-98.3 F 56-76 18-20 138-161/75-90 97-97 GENERAL: The patient is awake, alert, and fully oriented, in no acute distress. HEAD: Normal with no signs of trauma. EYES: PERRL, extraocular movements intact, sclera anicteric, conjunctiva clear. No ptosis. ENT: Ears normal, nares patent, oropharynx clear without exudates, moist mucous membranes. NECK: Trachea midline, full range of motion, supple. LUNGS: Breath sounds equal, clear to auscultation bilaterally, no wheezes, no crackles, no accessory muscle use. HEART: Regular rate and rhythm, S1, S2 without murmur, rub or gallop. ABDOMEN: Soft, nontender, nondistended, normoactive bowel sounds, no guarding, no rebound, no hepatosplenomegaly, no masses. EXTREMITIES: 2+ pulses, warm, well-perfused, no edema. NEUROLOGICAL: Cranial nerves II through XII grossly intact. Normal speech, gait not observed. PSYCH: Normal mood, normal affect. SKIN: Warm, dry, normal turgor, no rashes or lesions noted Laboratory Results - last 24 hr 02/06/17 02/07/17 02/07/17 05:35 06:00 06:00 WBC 5.6 RBC 2.49 L Hgb 9.7 L Hct 29.2 L MCV 117.1 H MCH 38.9 H MCHC 33.2 RDW 13.5 Plt Count 354 MPV 8.7 Sodium 143 Potassium 4.7 Chloride 109 H Carbon Dioxide 27 Anion Gap 7 L BUN 54 H Creatinine 2.3 H Random Glucose 93 Calcium 8.2 L RPR Titer Nonreactive Active Medications Generic Name Dose Route Start Last Admin Trade Name Freq PRN Reason Stop Dose Admin Albuterol Sulfate 1 amp 02/02/17 19:20 02/03/17 10:45 Ventolin 0.083% Nebulizer Soln - NEB 1 amp Q4H PRN Administration SHORT OF BREATH/WHEEZING Allopurinol 100 mg 02/03/17 10:00 02/06/17 09:29 Zyloprim - PO 100 mg DAILY [facility] Administration Amlodipine Besylate 5 mg 02/03/17 10:00 02/06/17 09:29 Norvasc - PO 5 mg DAILY [facility] Administration Atorvastatin Calcium 20 mg 02/02/17 22:00 02/06/17 21:24 Lipitor - PO 20 mg HS [facility] Administration Doxycycline Hyclate 100 mg 02/03/17 18:00 02/06/17 17:27 Vibramycin - PO 100 mg BID@1000,1800 [facility] Administration Folic Acid 1 mg 02/06/17 10:00 02/06/17 09:29 Folic Acid - PO 1 mg DAILY [facility] Administration Hydroxyurea 500 mg 02/02/17 16:30 02/07/17 05:51 Hydrea - PO 500 mg Q12H [facility] Administration Ceftriaxone Sodium 2 gm/ 100 mls @ 200 mls/hr 02/03/17 15:15 02/06/17 10:50 Dextrose IVPB 200 mls/hr DAILY [facility] Administration Metoprolol Succinate 100 mg 02/03/17 10:00 02/06/17 09:29 Toprol Xl - PO 100 mg DAILY [facility] Administration Warfarin Sodium 6 mg 02/04/17 18:00 02/06/17 17:27 Coumadin - PO 6 mg DAILY@1800 [facility] Administration ASSESSMENT/PLAN: 76 year old male with a past medical history of renal cell carcinoma s/p nephrectomy, systolic CHF, paroxysmal atrial fibrillation on coumadin, CAD, HTN , COPD, CKD, anemia and essential thrombocytosis is being treated in the hospital for multilobar pneumonia #Multilobar Pneumonia: patient's status has clinically improved -continue doxycycline/ceftriaxone day 5 today -patient is slightly altered -echo - pulmonary hypertension, RVSP 40-50mmhg #CKD: acute on chronic kidney disease - creatinine improving today -held torsemide 40mg QD, f/u with renal consult today -hold fluids -appreciate nephro consult #Enlarged Prostate - based on CT scan -PSA high -will need prostate biopsy as an outpatient #Hyperkalemia: from acute on chronic kidney disease -resolved #Afib: supratherapeutic INR now resolved -continue coumadin at 6mg #Hypertension -Patient is on metoprolol 100mg QD #Troponinemia: likely from CKD + demand ischemia -flat trend #Macrocytic Anemia: controlled #Nephrectomy: patient is controlled #FEN -no standing fluids -replete electrolytes as necessary -sodium controlled diet #Prophylaxis -patient on coumadin #Disposition -discharge planning tomorrow at bed Visit type - Emergency Visit Emergency Visit: No - New Patient This patient is new to me today: No - Critical Care Critical Care patient: No
[2017-02-07 09:25] VITALS: BP 127/71; PULSE 59; TEMP 97.8
[2017-02-07] MEDS ORDERED: PT OWN MED DRAWER 7, Y5N ONE (09:35)
[2017-02-07] MEDS: CEFTRIAXONE 2 GM in DEXTROSE 5%-WATER - 100 ML IVPB SCH (09:57)
[2017-02-07] MEDS: DOXYCYCLINE HYCLATE 100 MG CAPSULE PO SCH (09:57)
[2017-02-07] MEDS: FOLIC ACID 1 MG TABLET (FP) PO SCH (09:58)
[2017-02-07] MEDS: ALLOPURINOL 100 MG TABLET (FP) PO SCH (09:58)
[2017-02-07] MEDS: METOPROLOL SUCCINATE 100 MG TAB.SR.24H (FP) PO SCH (09:58)
[2017-02-07] MEDS: amLODIPine BESYLATE 5 MG TABLET (FP) PO SCH (09:58)
--- NOTE | 2017-02-07 12:09 | PN ---
Progress Note (short form) - Note Progress Note: OOB to chair on RA. Breathing feels overall better. Some dry cough. No hemoptysis. Intake & Output 02/04/17 02/05/17 02/06/17 02/07/17 23:59 23:59 23:59 23:59 Intake Total 160 460 Balance 160 460 Weight 220 lb 3.2 oz 222 lb 272 lb 3.2 oz 221 lb 11.2 oz Last Vital Signs Temp Pulse Resp BP Pulse Ox 97.8 F 59 L 18 127/71 97 02/07/17 09:24 02/07/17 09:24 02/07/17 09:24 02/07/17 09:24 02/07/17 09:00 Active Medications Albuterol Sulfate (Ventolin 0.083% Nebulizer Soln -) 1 amp NEB Q4H PRN PRN Reason: SHORT OF BREATH/WHEEZING Last Admin: 02/03/17 10:45 Dose: 1 amp Allopurinol (Zyloprim -) 100 mg PO DAILY [facility] Last Admin: 02/07/17 09:58 Dose: 100 mg Amlodipine Besylate (Norvasc -) 5 mg PO DAILY [facility] Last Admin: 02/07/17 09:58 Dose: 5 mg Atorvastatin Calcium (Lipitor -) 20 mg PO HS [facility] Last Admin: 02/06/17 21:24 Dose: 20 mg Doxycycline Hyclate (Vibramycin -) 100 mg PO BID@1000,1800 [facility] Last Admin: 02/07/17 09:57 Dose: 100 mg Folic Acid (Folic Acid -) 1 mg PO DAILY [facility] Last Admin: 02/07/17 09:58 Dose: 1 mg Hydroxyurea (Hydrea -) 500 mg PO Q12H [facility] Last Admin: 02/07/17 05:51 Dose: 500 mg Ceftriaxone Sodium 2 gm/ (Dextrose) 100 mls @ 200 mls/hr IVPB DAILY [facility] Last Admin: 02/07/17 09:57 Dose: 200 mls/hr Metoprolol Succinate (Toprol Xl -) 100 mg PO DAILY [facility] Last Admin: 02/07/17 09:58 Dose: 100 mg Warfarin Sodium (Coumadin -) 6 mg PO DAILY@1800 [facility] Last Admin: 02/06/17 17:27 Dose: 6 mg Constitutional: Yes: NAD Eyes: Yes: WNL HENT: Yes: WNL Neck: Yes: WNL Cardiovascular: Yes: Regular Rate and Rhythm, S1, S2 Respiratory: Yes: Few basilar rhonchi Gastrointestinal: Yes: Normal Bowel Sounds, Soft Extremities: Yes: WNL Edema: No Labs: Laboratory Results - last 24 hr 02/07/17 02/07/17 06:00 06:00 WBC 5.6 RBC 2.49 L Hgb 9.7 L Hct 29.2 L MCV 117.1 H MCH 38.9 H MCHC 33.2 RDW 13.5 Plt Count 354 MPV 8.7 Sodium 143 Potassium 4.7 Chloride 109 H Carbon Dioxide 27 Anion Gap 7 L BUN 54 H Creatinine 2.3 H Random Glucose 93 Calcium 8.2 L Problem List - Problems (1) Pneumonia Code(s): J18.9 - PNEUMONIA, UNSPECIFIED ORGANISM Assessment/Plan - Problems (1) Renal cell carcinoma Code(s): C64.9 - MALIGNANT NEOPLASM OF UNSP KIDNEY, EXCEPT RENAL PELVIS (2) Acute on chronic combined systolic and diastolic congestive heart failure Code(s): I50.43 - ACUTE ON CHRONIC COMBINED SYSTOLIC AND DIASTOLIC HRT FAIL (3) Acute on chronic renal failure Code(s): N17.9 - ACUTE KIDNEY FAILURE, UNSPECIFIED; N18.9 - CHRONIC KIDNEY DISEASE, UNSPECIFIED (4) Acute pulmonary edema with congestive heart failure Code(s): I50.1 - LEFT VENTRICULAR FAILURE, UNSPECIFIED (5) Anemia Code(s): D64.9 - ANEMIA, UNSPECIFIED Qualifiers: Assessment/Plan PROGRESSIVE RENAL INSUFFICIENCY PAF/DILATED CARDIOMYOPATHY PNEUMONIA CLINICALLY IMPROVING ELEVATED TROPONIN/ELEVATED BNP WEIGHT LOSS/FATIGUE ANEMIA CONFUSION RESOLVED MONITOR BUN/CR COUMADIN INHALED BRONCHODILATORS ANTIBIOTICS PER ID O2 NEEDED NO PULMONARY CONTRAINDICATION FOR D/C PLANNING DR NIXON
--- NOTE | 2017-02-07 13:24 | PN ---
Teaching Attending Note Name of Resident: Rishabh Meredith ATTENDING PHYSICIAN STATEMENT Time of evaluation: 9:45 AM I saw and evaluated the patient. I reviewed the resident's note and discussed the case with the resident. I agree with the resident's findings and plan as documented. SUBJECTIVE: Patient seen and examined, no complaints, doing well. OBJECTIVE: Vital Signs Period Temp Pulse Resp BP Sys/Vazquez Pulse Ox Last 24 Hr 97.7 F-98.3 F 56-67 18-20 127-161/71-90 97-97 Intake & Output 02/04/17 02/05/17 02/06/17 02/07/17 23:59 23:59 23:59 23:59 Intake Total 160 460 Balance 160 460 Weight 220 lb 3.2 oz 222 lb 272 lb 3.2 oz 221 lb 11.2 oz General: sitting in bed in no acute distress CVS:S1S2 regular Chest: few right basilar rales Abdomen: soft, obese, NT, positive bowel sounds extremities: no edema Home Medication List Medication Instructions Recorded Confirmed Type Allopurinol [Zyloprim -] 100 mg PO DAILY 02/03/17 02/03/17 History Amiodarone HCl [Cordarone -] 200 mg PO DAILY 02/03/17 02/03/17 History Amlodipine Besylate 5 mg PO DAILY 02/03/17 02/03/17 History Cholecalciferol (Vitamin D3) 2,000 unit PO DAILY 02/03/17 02/03/17 History [Vitamin D3] Hydroxyurea [Hydrea] 500 mg PO BID 02/03/17 02/03/17 History Metoprolol Succinate [Toprol Xl] 100 mg PO DAILY 02/03/17 02/03/17 History Simvastatin 40 mg PO HS 02/03/17 02/03/17 History Torsemide 40 mg PO DAILY 02/03/17 02/03/17 History Warfarin Sodium 7 mg PO DAILY 02/03/17 02/03/17 History Active Medications Generic Name Dose Route Start Last Admin Trade Name Freq PRN Reason Stop Dose Admin Albuterol Sulfate 1 amp 02/02/17 19:20 02/03/17 10:45 Ventolin 0.083% Nebulizer Soln - NEB 1 amp Q4H PRN Administration SHORT OF BREATH/WHEEZING Allopurinol 100 mg 02/03/17 10:00 02/07/17 09:58 Zyloprim - PO 100 mg DAILY [facility] Administration Amlodipine Besylate 5 mg 02/03/17 10:00 02/07/17 09:58 Norvasc - PO 5 mg DAILY [facility] Administration Atorvastatin Calcium 20 mg 02/02/17 22:00 02/06/17 21:24 Lipitor - PO 20 mg HS [facility] Administration Doxycycline Hyclate 100 mg 02/03/17 18:00 02/07/17 09:57 Vibramycin - PO 100 mg BID@1000,1800 [facility] Administration Folic Acid 1 mg 02/06/17 10:00 02/07/17 09:58 Folic Acid - PO 1 mg DAILY [facility] Administration Hydroxyurea 500 mg 02/02/17 16:30 02/07/17 05:51 Hydrea - PO 500 mg Q12H [facility] Administration Ceftriaxone Sodium 2 gm/ 100 mls @ 200 mls/hr 02/03/17 15:15 02/07/17 09:57 Dextrose IVPB 200 mls/hr DAILY [facility] Administration Metoprolol Succinate 100 mg 02/03/17 10:00 02/07/17 09:58 Toprol Xl - PO 100 mg DAILY [facility] Administration Warfarin Sodium 6 mg 02/04/17 18:00 02/06/17 17:27 Coumadin - PO 6 mg DAILY@1800 [facility] Administration Microbiology 02/03/17 15:15 Blood - Peripheral Venous Blood Culture - Preliminary NO GROWTH OBTAINED AFTER 72 HOURS, INCUBATION TO CONTINUE FOR 2 DAYS. 02/03/17 15:15 Blood - Peripheral Venous Blood Culture - Preliminary NO GROWTH OBTAINED AFTER 72 HOURS, INCUBATION TO CONTINUE FOR 2 DAYS. 02/03/17 17:00 Urine For Antigen Detection Legionella Antigen - Final 02/03/17 17:00 Urine For Antigen Detection Streptococcus pneumoniae Antigen (M - Final 02/02/17 14:47 Urine - Urine Clean Catch Urine Culture - Final NO GROWTH OBTAINED CT A/P reviewed ASSESSMENT AND PLAN: 76yo M with PMH RCC s/p nephrectomy, Chronic LV diastolic dysfunction, PAF on coumadin, CAD, HTN, COPD, CKD, anemia and essential thrombocytosis presented to the ER with generalized weakness and cough, found with multifocal PNA and VAZQUEZ on CKD. 1. Multilobar PNA 2. Acute on CKD 3. Chronic LV dysfunction- 4. Agitation, resolved 5. Hyerkalemia 6. Tropinemia 7. Macrocytic anemiar 8. RCC s/p nephrectomy 9. PAF on coumadin- 10. supratherapeutic INR, resolved 11. HTN- 12. COPD- stable Plan: Doing well, no leucocytosis, oxygenating well, transition to ceftin/doxycycline for a 1 week course total. Follow up CT chest in [address] Snow, decrease diovan and resume torsemide tomorrow. Outpatient follow up with labwork in 2 weeks. PCP informed of the renal mass and to follow outpatient. COumadin 7 mg daily with INR check in 2 days. Discuss with cardiology if needs to be resumed on amiodarone. Plan discusssed with patient in detail, all questions answered, follow up discussed. D/c home today after discussion above.
--- NOTE | 2017-02-07 13:36 | PN ---
Progress Note, Physician Chief Complaint: Not in distress Feels better sitting in chair History of Present Illness: Patient was seen and examined. Awake and alert. Chart was reviewed Denies chest pain, SOB or palpitations - Current Medication List Current Medications: Active Medications Albuterol Sulfate (Ventolin 0.083% Nebulizer Soln -) 1 amp NEB Q4H PRN PRN Reason: SHORT OF BREATH/WHEEZING Last Admin: 02/03/17 10:45 Dose: 1 amp Allopurinol (Zyloprim -) 100 mg PO DAILY [facility] Last Admin: 02/07/17 09:58 Dose: 100 mg Amlodipine Besylate (Norvasc -) 5 mg PO DAILY [facility] Last Admin: 02/07/17 09:58 Dose: 5 mg Atorvastatin Calcium (Lipitor -) 20 mg PO HS [facility] Last Admin: 02/06/17 21:24 Dose: 20 mg Doxycycline Hyclate (Vibramycin -) 100 mg PO BID@1000,1800 [facility] Last Admin: 02/07/17 09:57 Dose: 100 mg Folic Acid (Folic Acid -) 1 mg PO DAILY [facility] Last Admin: 02/07/17 09:58 Dose: 1 mg Hydroxyurea (Hydrea -) 500 mg PO Q12H [facility] Last Admin: 02/07/17 05:51 Dose: 500 mg Ceftriaxone Sodium 2 gm/ (Dextrose) 100 mls @ 200 mls/hr IVPB DAILY [facility] Last Admin: 02/07/17 09:57 Dose: 200 mls/hr Metoprolol Succinate (Toprol Xl -) 100 mg PO DAILY [facility] Last Admin: 02/07/17 09:58 Dose: 100 mg Warfarin Sodium (Coumadin -) 6 mg PO DAILY@1800 [facility] Last Admin: 02/06/17 17:27 Dose: 6 mg - Objective Vital Signs: Vital Signs Temperature 97.8 F 02/07/17 09:24 Pulse Rate 59 L 02/07/17 09:24 Respiratory Rate 18 02/07/17 09:24 Blood Pressure 127/71 02/07/17 09:24 O2 Sat by Pulse Oximetry (%) 97 02/07/17 09:00 Eyes: Yes: PERRL HENT: Yes: Atraumatic Cardiovascular: Yes: Regular Rate and Rhythm, Murmur (JENNIFFER), S1, S2 Respiratory: Yes: CTA Bilaterally Gastrointestinal: Yes: Normal Bowel Sounds, Soft. No: Tenderness Edema: No Labs: CBC, BMP 02/07/17 06:00 02/07/17 06:00 INR, PTT INR 2.38 (0.82-1.09) H 02/06/17 05:35 Problem List - Problems (1) Acute on chronic combined systolic and diastolic congestive heart failure Code(s): I50.43 - ACUTE ON CHRONIC COMBINED SYSTOLIC AND DIASTOLIC HRT FAIL (2) Acute on chronic renal failure Code(s): N17.9 - ACUTE KIDNEY FAILURE, UNSPECIFIED; N18.9 - CHRONIC KIDNEY DISEASE, UNSPECIFIED (3) Acute pulmonary edema with congestive heart failure Code(s): I50.1 - LEFT VENTRICULAR FAILURE, UNSPECIFIED (4) Acute respiratory failure with hypoxia Code(s): J96.01 - ACUTE RESPIRATORY FAILURE WITH HYPOXIA (5) Anemia Code(s): D64.9 - ANEMIA, UNSPECIFIED Qualifiers: Anemia type: due to chronic kidney disease Chronic kidney disease stage: stage 3 (moderate) Qualified Code(s): N18.3 - Chronic kidney disease, stage 3 (moderate); D63.1 - Anemia in chronic kidney disease; D63.1 - Anemia in chronic kidney disease (6) Aortic regurgitation Code(s): I35.1 - NONRHEUMATIC AORTIC (VALVE) INSUFFICIENCY Qualifiers: Cardiac valve disease etiology: nonrheumatic Qualified Code(s): I35.1 - Nonrheumatic aortic (valve) insufficiency (7) Atrial fibrillation Code(s): I48.91 - UNSPECIFIED ATRIAL FIBRILLATION Qualifiers: Atrial fibrillation type: paroxysmal Qualified Code(s): I48.0 - Paroxysmal atrial fibrillation (8) CKD (chronic kidney disease) Code(s): N18.9 - CHRONIC KIDNEY DISEASE, UNSPECIFIED (9) Community acquired pneumonia Code(s): J18.9 - PNEUMONIA, UNSPECIFIED ORGANISM Qualifiers: Laterality: left Lung location: lower lobe of lung Qualified Code(s): J18.1 - Lobar pneumonia, unspecified organism (10) Demand ischemia Code(s): I24.8 - OTHER FORMS OF ACUTE ISCHEMIC HEART DISEASE (11) Diastolic dysfunction without heart failure Code(s): I51.9 - HEART DISEASE, UNSPECIFIED (12) Obstructive sleep apnea Code(s): G47.33 - OBSTRUCTIVE SLEEP APNEA (ADULT) (PEDIATRIC) (13) Pulmonary HTN Code(s): I27.2 - OTHER SECONDARY PULMONARY HYPERTENSION * DO NOT USE * (14) Coronary artery disease Code(s): I25.10 - ATHSCL HEART DISEASE OF [place] CORONARY ARTERY W/O ANG PCTRS Qualifiers: Coronary Disease-Associated Artery/Lesion type: [place] artery [place] vs. transplanted heart: [place] heart Associated angina: without angina Qualified Code(s): I25.10 - Atherosclerotic heart disease of [place] coronary artery without angina pectoris (15) Hyperlipidemia Code(s): E78.5 - HYPERLIPIDEMIA, UNSPECIFIED Qualifiers: Hyperlipidemia type: pure hypercholesterolemia Qualified Code(s): E78.00 - Pure hypercholesterolemia, unspecified; E78.0 - Pure hypercholesterolemia (16) Hypertensive cardiovascular-renal disease Code(s): I13.10 - HYP HRT & CHR KDNY DIS W/O HRT FAIL, W STG 1-4/UNSP CHR KDNY Qualifiers: Hypertensive chronic kidney disease stage: stage 1-4 or unspecified chronic kidney disease Heart failure presence: with heart failure Qualified Code(s) : I13.0 - Hypertensive heart and chronic kidney disease with heart failure and stage 1 through stage 4 chronic kidney disease, or unspecified chronic kidney disease Assessment/Plan 1. Left lower lobe pneumonia, resolving 2. Systolic/diastolic LV dysfunction with chronic class I-II NYHA classification LV failure, compensated/euvolemic 3. CAD post MA, angina pectoris evidence of demand ischemia related to the above noted presentation, pneumonia 4. PAF currently in sinus rhythm [id number] 4 on Coumadin therapy with therapeutic INR 5. 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 HTN/HCVD 7. 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 COPD 10. CKD 11. Anemia 12. History of essential thrombocytosis PLAN: 1. Continue Toprol XL and Norvasc 2. Recommend resumption of ARB once renal function stabilized 3. Continue Lipitor 4. Continue Coumadin as per INR with close monitoring of CBC 5. Echocardiography noted - mild LV systolic dysfunction, moderate AR, moderate TR, moderate pulmonary HTN 6. Currently he is off Amiodarone since admission. Will stay off Amiodarone unless AF recurs otherwise discharge planning. Spoke with resident on service Further plans are to follow Ravinder Morris MD
--- NOTE | 2017-02-07 13:53 | DS ---
Physical Exam: HOSPITAL COURSE: Date of Admission:02/02/17 76 year old male with a past medical history of renal cell carcinoma s/p nephrectomy, systolic CHF, paroxysmal atrial fibrillation on coumadin, CAD, HTN , COPD, CKD, anemia and essential thrombocytosis presented to the hospital for weakness and fatigue and non productive cough. Workup was performed and patient was diagnosed with multilobar pneumonia and admitted to telemetry with a subtherapeutic INR. Patient was placed on antibiotics for 5 days and given anticoagulants to stabilize his INR. Patient was altered throughout most of the hospital stay, but was conversational. Patient had a CT head done and was found to have a meningioma. He was discharged on 02/07/17 with instructions to follow with his primary care physician, his department head [employer] or [employer] to manage his chronic kidney disease, and regional property manager to follow up on his cardiac status. Date of Discharge: 02/07/17 Minutes to complete discharge: 30 <Rishabh Meredith - Last Filed: 02/07/17 13:57> Physical Exam: SUBJECTIVE: Patient seen and examined OBJECTIVE: Vital Signs Period Temp Pulse Resp BP Sys/Vazquez Pulse Ox Last 24 Hr 97.7 F-98.3 F 56-67 18-20 127-161/71-90 97-97 PHYSICAL EXAM GENERAL: The patient is awake, alert, and fully oriented, in no acute distress. HEAD: Normal with no signs of trauma. EYES: PERRL, extraocular movements intact, sclera anicteric, conjunctiva clear. ENT: Ears normal, nares patent, oropharynx clear without exudates, moist mucous membranes. NECK: Trachea midline, full range of motion, supple. LUNGS: Breath sounds equal, clear to auscultation bilaterally, no wheezes, no crackles, no accessory muscle use. HEART: Regular rate and rhythm, S1, S2 without murmur, rub or gallop. ABDOMEN: Soft, nontender, nondistended, normoactive bowel sounds, no guarding, no rebound, no hepatosplenomegaly, no masses. EXTREMITIES: 2+ pulses, warm, well-perfused, no edema. NEUROLOGICAL: Cranial nerves II through XII grossly intact. Normal speech, gait not observed. PSYCH: Normal mood, normal affect. SKIN: Warm, dry, normal turgor, no rashes or lesions noted. LABS Laboratory Results - last 24 hr 02/07/17 02/07/17 06:00 06:00 WBC 5.6 RBC 2.49 L Hgb 9.7 L Hct 29.2 L MCV 117.1 H MCH 38.9 H MCHC 33.2 RDW 13.5 Plt Count 354 MPV 8.7 Sodium 143 Potassium 4.7 Chloride 109 H Carbon Dioxide 27 Anion Gap 7 L BUN 54 H Creatinine 2.3 H Random Glucose 93 Calcium 8.2 L HOSPITAL COURSE: Date of Admission:02/02/17 Date of Discharge: 02/07/17 <Harry Hopkins - Last Filed: 02/07/17 16:16> Discharge Summary Reason For Visit: SOB Current Active Problems CKD (chronic kidney disease) (Acute) Demand ischemia (Acute) Elevated INR (Acute) Hyperkalemia (Acute) Pneumonia (Acute) Renal cell carcinoma (Acute) Shortness of breath (Acute) - Home Medications Comprehensive Discharge Medication List: Ambulatory Orders Allopurinol [Zyloprim -] 100 mg PO DAILY 02/03/17 Cholecalciferol (Vitamin D3) [Vitamin D3] 2,000 unit PO DAILY 02/03/17 Hydroxyurea [Hydrea] 500 mg PO BID 02/03/17 Metoprolol Succinate [Toprol Xl] 100 mg PO DAILY 02/03/17 Simvastatin 40 mg PO HS 02/03/17 Torsemide 40 mg PO DAILY 02/03/17 Warfarin Sodium 7 mg PO DAILY 02/03/17 Cefuroxime Axetil [Ceftin -] 500 mg PO Q12H #5 tablet 02/07/17 Doxycycline Hyclate [Vibramycin -] 100 mg PO BID #5 cap 02/07/17 Valsartan [Diovan] 80 mg PO DAILY #21 tablet 02/07/17 <Rishabh Meredith - Last Filed: 02/07/17 13:57> Meningioma findings were discussed with PCP Dr. Rodriguez and patient is scheduled to follow up with him. - Home Medications Comprehensive Discharge Medication List: Ambulatory Orders Allopurinol [Zyloprim -] 100 mg PO DAILY 02/03/17 Cholecalciferol (Vitamin D3) [Vitamin D3] 2,000 unit PO DAILY 02/03/17 Hydroxyurea [Hydrea] 500 mg PO BID 02/03/17 Metoprolol Succinate [Toprol Xl] 100 mg PO DAILY 02/03/17 Simvastatin 40 mg PO HS 02/03/17 Torsemide 40 mg PO DAILY 02/03/17 Warfarin Sodium 7 mg PO DAILY 02/03/17 Cefuroxime Axetil [Ceftin -] 500 mg PO Q12H #5 tablet 02/07/17 Doxycycline Hyclate [Vibramycin -] 100 mg PO BID #5 cap 02/07/17 Valsartan [Diovan] 80 mg PO DAILY #21 tablet 02/07/17 <Harry Hopkins - Last Filed: 02/07/17 16:16> Condition: Stable - Instructions Diet, Activity, Other Instructions: You were treated in the hospital for pneumonia, an infection of your lungs. Medical Recommendations: 1. You need to take antibiotics for a total of 2 days after today, they are as follows: a. Ceftin 500mg twice a day for 2 more days, take one dose this evening, 2 tomorrow, and 2 the following day b. Doxycycline 100mg twice a day for 2 more days, take one dose this evening , 2 tomorrow, and 2 the following day -these medications have been sent to your pharmacy ([facility]) Avoid direct sun exposure, tanning while on doxycycline. Have follow up blood work (CBC) with your doctor in 1 week. 2. Reduce your dose of Diovan to 80mg once a day, a new prescription was sent to [facility] pharmacy 3. Your medication Amiodarone has been discontinued, please follow up with your regional property manager for further treatment guidance. 4. Please follow up with your primary care doctor within 1 week of discharge. 5. You will need follow up CT chest in 4 weeks to assess your pneumonia. 6. Please make an appointment with Dr. Snow (Kidney Specialist) within 2 weeks of discharge You have been noted with a mass on your kidney and needs further testing with your kidney specialist in 2 weeks. Please discuss on next visit. 7. Please follow up with Dr. Ravinder Morris the regional property manager in 2 weeks. 8. Take warfarin as directed, and have INR check with your doctor in 3-4 days. Kidney function check (blood work - chem-7) with your department head college or university or primary doctor in 1 week. 9. Daily weights and notify doctor if weight gain > 3lbs in 2 days, decreased urination or new concerns. 10. If you experience shortness of breath, fevers, chills, chest pain, please return to the emergency room immediately -Medication changes: Start ceftin and doxycycline as directed. Stop taking amiodarone Reduce diovan to 80 mg daily Resume torsemide from tomorrow. Blood tests: INR check in 3 days CBC/Chem-7 in 1 week with your primary care doctor. Follow up test: CT chest in 4 weeks. Follow up with kidney specialist to check mass on your kidneys. Referrals: Sridhar Rodriguez MD [Primary Care Provider] - Ravinder Morris MD [Staff Physician] - Glo Snow MD [Staff Physician] - Disposition: HOME This patient is new to me today: No Emergency Visit: No Critical Care patient: No - Discharge Referral Referred to [facility] Med P.C.: No <Rishabh Meredith - Last Filed: 02/07/17 13:57>
--- NOTE | 2017-02-07 15:06 | PN ---
Progress Note, Physician History of Present Illness: Pt seen and examined at bedside. He is eager to go home. He denies dysuria or hematuria. - Objective Vital Signs: Vital Signs Temperature 97.8 F 02/07/17 09:24 Pulse Rate 59 L 02/07/17 09:24 Respiratory Rate 18 02/07/17 09:24 Blood Pressure 127/71 02/07/17 09:24 O2 Sat by Pulse Oximetry (%) 97 02/07/17 09:00 Constitutional: Yes: Calm Eyes: Yes: Conjunctiva Clear HENT: Yes: Atraumatic Cardiovascular: Yes: S1, S2 Respiratory: Yes: CTA Bilaterally Gastrointestinal: Yes: Normal Bowel Sounds, Soft Genitourinary: Yes: WNL Musculoskeletal: Yes: WNL Edema: LLE: Trace, RLE: Trace Neurological: Yes: Oriented Psychiatric: Yes: Oriented Labs: CBC, BMP 02/07/17 06:00 02/07/17 06:00 INR, PTT INR 2.38 (0.82-1.09) H 02/06/17 05:35 Problem List - Problems (1) CKD (chronic kidney disease) Code(s): N18.9 - CHRONIC KIDNEY DISEASE, UNSPECIFIED (2) Renal cell carcinoma Code(s): C64.9 - MALIGNANT NEOPLASM OF UNSP KIDNEY, EXCEPT RENAL PELVIS Assessment/Plan Impression 1. CKD 2. hx renal cell cancer 3. weight loss 4. hyperlipidemia 5. HTN 6. complex left renal lesion 7. PNA Plan - renal function stabilizing - pt will need urology eval - will see in office - will need to be prepped before ct scan with contrast - he is at risk for JOH[place] - cont current meds - restart diovan today at 80 mg - restart diuretics tomorrow - will follow Dr Snow
== END 2017-02-07 14:56 | disposition home or self-care (01) | DRG 190 ==
LOC: JER 11:42 → JERBED 14:45 → J4W 16:54 → J7W 02-05 15:50
PROVIDERS: ADMIT Specialist; ATTEND Hospitalist
DX: J44.0 Chronic obstructive pulmonary disease with (acute) lower respiratory infection (principal); J18.9 Pneumonia, unspecified organism; C64.9 Malignant neoplasm of unspecified kidney, except renal pelvis; I42.0 Dilated cardiomyopathy; I13.0 Hypertensive heart and chronic kidney disease with heart failure and stage 1 through stage 4 chronic kidney disease, or unspecified chronic kidney disease; N17.9 Acute kidney failure, unspecified; I50.1 Left ventricular failure, unspecified; I50.20 Unspecified systolic (congestive) heart failure; I48.0 Paroxysmal atrial fibrillation; D64.9 Anemia, unspecified; E78.5 Hyperlipidemia, unspecified; F17.210 Nicotine dependence, cigarettes, uncomplicated; N18.9 Chronic kidney disease, unspecified; I25.119 Atherosclerotic heart disease of native coronary artery with unspecified angina pectoris; E87.5 Hyperkalemia; R79.1 Abnormal coagulation profile; N40.0 Benign prostatic hyperplasia without lower urinary tract symptoms; I35.1 Nonrheumatic aortic (valve) insufficiency; G47.33 Obstructive sleep apnea (adult) (pediatric); I27.20 Pulmonary hypertension, unspecified; R41.0 Disorientation, unspecified
CPT/HCPCS: 36415; 70450-TC; 71020-TC; 71250-TC; 74176-TC; 76775-TC; 76856-TC; 80048; 80053; 81003; 81015; 82550; 82553; 82607; 82746; 83690; 83735; 83880; 84153; 84443; 84484; 85025; 85027; 85610; 85730; 86593; 86850; 86900; 86901; 87040; 87086; 87899; 93005; 93010; 93306-TC; 94640; 97116-GP; 97161-GP; 99284-25; J8999; Q9967